=== PATIENT | male | born 1965 | race Hispanic/Latino ===

== ENCOUNTER 2020-05-05 18:24 | Emergency (ER) | payer MEDICARE ==
[2020-05-05] MEDS ORDERED: SODIUM CHLORIDE 0.9% (FLUSH) 10 ML SYG IV PRN (18:35)
[2020-05-05] MEDS ORDERED: SODIUM CHLORIDE 0.9% 1000ML 1,000 ML IVS PRN (18:35)
--- NOTE | 2020-05-05 19:05 | ED.PDOC ---
History of Present Illness - General Source: Vital Signs reviewed, EMS notes reviewed, EMS, intermediate records, old records Exam Limitations: clinical condition - History of Present Illness Initial Comments: 54 yo M comes via EMS from intermediate with c/c of AMS. Hx of hepatic failure. noncompliance. Timing/Duration: unknown <Nadege Curry - Last Filed: 05/06/20 06:27> <Alexei Urbano - Last Filed: 05/06/20 09:04> - General Chief Complaint: Neuro Symptoms/Deficits Stated Complaint: altered mental status Time Seen by Provider: 05/05/20 18:35 - History of Present Illness Allergies/Adverse Reactions: Allergies NO KNOWN ALLERGY Allergy (Verified 03/29/15 19:31) Home Medications: Ambulatory Orders Aspirin [Aspirin 81 Low Dose] 81 mg PO DAILY 05/05/20 Furosemide 80 mg PO DAILY 05/05/20 Insulin Aspart [Novolog Flexpen] 100 unit SC AC 05/05/20 Insulin Glargine [Lantus Solostar] 20 unit SUBCU DAILY 05/05/20 Lactulose 30 ml PO TID 05/05/20 Ondansetron [Ondansetron Odt] 4 mg PO PRN 05/05/20 Spironolactone 200 mg PO DAILY 05/05/20 Acetaminophen [Tylenol] 325 mg PO PRN 05/06/20 Carboxymethylcellulose Sodium [Theratears] 2 drop OP PRN 05/06/20 Magnesium Oxide 400 mg PO TID 05/06/20 Review of Systems - Review of Systems Unable to Obtain Due To: clinical condition <Nadege Curry - Last Filed: 05/06/20 06:27> Past Medical History (General) - Patient Medical History Hx Dementia: No Hx Asthma: No Hx Pacemaker: No Hx Diabetes: Yes Hx Renal Disease: No Hx Cancer: No Hx of HIV: No Hx Hepatitis C: Yes Hx Other PMH: Yes - liver failure - Vaccination History Hx Influenza Vaccination: No - Social History Hx Tobacco Use: No Hx Alcohol Use: Yes - 0CC 2-3 MONTHS Hx Substance Use: No Hx Substance Use Treatment: No Hx Depression: No - Female History Patient : No <Nadege Curry Last Filed: 05/06/20 06:27> Family Medical History - Family History Mother Family History: Unknown Living Status: Unknown <Nadege Curry - Last Filed: 05/06/20 06:27> Physical Exam - Physical Exam General Appearance: Unkempt - GCS 10. , Other - anasarca Eye Exam: bilateral normal, bilateral scleral icterus ENT Exam: other - mucosa membrane dry Neck: non-tender, full range of motion, supple, normal inspection, trachea midline Respiratory: chest non-tender, lungs clear, normal breath sounds, no respiratory distress, no accessory muscle use, other - large right chest ecchymosis Cardiovascular/Chest: normal peripheral pulses, regular rate, rhythm, no edema, no gallop, no JVD Peripheral Pulses: radial,right: 2+, radial,left: 2+ Gastrointestinal/Abdominal: non tender, soft, no organomegaly, no pulsatile mass, other - ascities Back Exam: no CVA tenderness, no vertebral tenderness Extremities Exam: non-tender, normal range of motion Mental Status: disoriented x 3, lethargic Skin Exam: other - ecchymosis on right arm, right chest/abdomen. <Nadege Curry - Last Filed: 05/06/20 06:27> Progress - Progress Progress: 05/05/20 21:18 partial ddx: ICH,hepatic encephalopathy, uti, others. GCS 10, given lactulose PO, took in half and spit the other half out. GCS then improved to 12, patient is now agitated and yelling GCS 12. Will give haldol and another dose of lactulose. UTI noted will get blood cultures, started rocephin. Given Albumin 12.5 mg x 2. MELD score 25. [id number]-[id number]-cirrhosis-mortality - child Class C Discussed with Prosper Angeles for admission, accepted for admission, but did not have nursing staff. attempted to call 15 different placed across the [facility], [place], as well as, [facility]. no beds available. repeat ammonia 106. Repeat ammonia 106. The data reviewed when caring for this patient included: nurse notes, prior records, etc. The history and assessments from nurses notes were reviewed and considered, and the patient's home medication list was also reviewed and considered. 05/06/20 06:19 - Results/Orders Results/Orders: 05/05/20 18:35 IV Care:Saline Lock per Protoc QSHIFT Telemetry Q4H Sodium Chloride 0.9% (Flush) [Saline Flush Syringe] 10 ml IV PRN PRN Sodium Chloride 0.9% 1000ML [Ns 1000 ml] 1,000 ml IVS .QD 05/05/20 18:45 EKG STAT 05/05/20 19:28 Catheter:Palma QSHIFT 05/05/20 19:36 URINE CULTURE W/COLONY COUNT Stat 05/05/20 20:48 Abdoment/Pelvis w/o Contrast [CT] Stat BLOOD CULTURE Stat Laboratory Results WBC 10.7 K/mm3 (4.8-10.8) 05/05/20 18:50 RBC 3.74 M/mm3 (4.70-6.10) L 05/05/20 18:50 Hgb 11.3 gm/dL (14.0-18.0) L 05/05/20 18:50 Hct 32.9 % (42.0-52.0) L 05/05/20 18:50 MCV 87.9 fl (80.0-94.0) 05/05/20 18:50 MCH 30.2 pg (27.0-31.0) 05/05/20 18:50 MCHC 34.3 g/dL (33.0-37.0) 05/05/20 18:50 RDW 15.8 % (11.5-14.5) H 05/05/20 18:50 Plt Count 24 K/mm3 (130-400) L* 05/05/20 18:50 MPV 10.3 fl (7.40-10.4) 05/05/20 18:50 Absolute Neuts (auto) 9.80 K/uL (1.8-6.8) H 05/05/20 18:50 Absolute Lymphs (auto) 0.30 K/uL (1.0-3.4) L 05/05/20 18:50 Absolute Monos (auto) 0.50 K/uL (0.2-0.8) 05/05/20 18:50 Absolute Eos (auto) 0.10 K/uL (0.0-0.4) 05/05/20 18:50 Absolute Basos (auto) 0.00 K/uL (0.0-0.1) 05/05/20 18:50 Neutrophils % 91.4 % (42.0-78.0) H 05/05/20 18:50 Lymphocytes % 2.7 % (20.0-50.0) L 05/05/20 18:50 Monocytes % 4.9 % (2.0-9.0) 05/05/20 18:50 Eosinophils % 0.8 % (1.0-5.0) L 05/05/20 18:50 Basophils % 0.2 % (0.0-2.0) 05/05/20 18:50 PT 18.5 SECONDS (9.0-10.9) H 05/05/20 18:50 INR 1.87 (0.9-1.15) H 05/05/20 18:50 PTT (SP) 42.6 SECONDS (21.8-31.6) H 05/05/20 18:50 Sodium 130 mmol/L (135-145) L 05/05/20 18:50 Potassium 3.7 mmol/L (3.6-5.0) 05/05/20 18:50 Chloride 100 mmol/L (101-111) L 05/05/20 18:50 Carbon Dioxide 23 mmol/L (21-31) 05/05/20 18:50 Anion Gap 10.7 (12-18) L 05/05/20 18:50 BUN 20 mg/dL (7-18) H 05/05/20 18:50 Creatinine < 0.40 mg/dL (0.6-1.3) L 05/05/20 18:50 BUN/Creatinine Ratio 50.0 (10-20) H 05/05/20 18:50 Random Glucose 175 mg/dL (70-105) H 05/05/20 18:50 Serum Osmolality 267.7 mOsm/L (275-295) L 05/05/20 18:50 Calcium 7.4 mg/dL (8.4-10.2) L 05/05/20 18:50 Total Bilirubin 5.3 mg/dL (0.2-1.0) H* 05/05/20 18:50 AST 29 IU/L (10-42) 05/05/20 18:50 ALT 30 IU/L (10-60) 05/05/20 18:50 Alkaline Phosphatase 157 IU/L (42-121) H 05/05/20 18:50 Ammonia 179 umol/L (10-35) H* 05/05/20 18:50 Creatine Kinase 50 IU/L (38-174) 05/05/20 18:50 CK-MB (CK-2) 1.1 ng/mL (0.0-4.4) 05/05/20 18:50 CK-MB (CK-2) % Not Reportable 05/05/20 18:50 Troponin I 0.03 ng/mL (0.01-0.05) 05/05/20 18:50 Serum Total Protein 5.6 gm/dL (6.4-8.2) L 05/05/20 18:50 Albumin 1.5 g/dl (3.2-5.5) L 05/05/20 18:50 Globulin 4.1 gm/dL (2.3-3.5) H 05/05/20 18:50 Albumin/Globulin Ratio 0.4 (1.1-1.9) L 05/05/20 18:50 Urine Color Paty (Yellow) 05/05/20 19:36 Urine Appearance Cloudy (Clear) 05/05/20 19:36 Urine pH 5.5 (4.5-7.8) 05/05/20 19:36 Ur Specific Gorman 1.015 (1.005-1.030) 05/05/20 19:36 Urine Protein Negative mg/dL 05/05/20 19:36 Urine Glucose (UA) Negative mg/dL (Negative) 05/05/20 19:36 Urine Ketones Negative mg/dL (NEGATIVE) 05/05/20 19:36 Urine Blood Moderate (Negative) H 05/05/20 19:36 Urine Nitrite Negative 05/05/20 19:36 Urine Bilirubin Small (NEGATIVE) H 05/05/20 19:36 Urine Urobilinogen >= 8.0 mg/dL (0.2-1.0) H 05/05/20 19:36 Ur Leukocyte Esterase Trace (Negative) H 05/05/20 19:36 Urine RBC 5-10 /hpf H 05/05/20 19:36 Urine WBC 10-20 /hpf H 05/05/20 19:36 Ur Epithelial Cells 1-3 /hpf 05/05/20 19:36 Urine Bacteria 4+ H 05/05/20 19:36 Salicylates < 4.0 mg/dL (0-29.9) 05/05/20 18:50 Urine Opiates Screen Negative ng/mL (1999) 05/05/20 19:36 Acetaminophen 13.8 ug/mL (10.0-30.0) 05/05/20 18:50 Urine Barbiturates Negative ng/mL (200) 05/05/20 19:36 Ur Phencyclidine Scrn Negative ng/mL (25) 05/05/20 19:36 U Amphetamin/Meth Scrn Negative ng/mL (1000) 05/05/20 19:36 U Benzodiazepines Scrn Negative ng/mL (200) 05/05/20 19:36 U Cocaine Metab Screen Negative ng/mL (300) 05/05/20 19:36 U Cannabinoids Screen Negative ng/mL (50) 05/05/20 19:36 Ethyl Alcohol < 5.10 mg/dL (0-79) 05/05/20 18:50 - EKG/XRAY/CT EKG: Sinus, Tachy Comments: HR 106, normal intervals, no acute ischemia. <Nadege Curry - Last Filed: 05/06/20 06:27> - Progress Progress: 05/06/20 08:03 -Handoff received from Dr. Curry at shift change. Patient is a 54-year-old female with past medical history of end-stage liver disease, cirrhosis, hepatitis C, history of alcohol abuse, diabetes who presented to the ED now over 13 hours ago from [facility] for chief complaint of altered mental status. Patient had full work-up in the ED which revealed elevated ammonia level 179 which is now trended down to 106. Otherwise his labs revealed findings consistent with progressive end-stage liver disease with pancytopenia, abnormal liver labs, etc. His UA was concerning for possible UTI. CT imaging of the head revealed no acute processes. CT abdomen/pelvis revealed findings of shrunken cirrhotic liver with moderate ascites and findings of chronic pancreatitis. There was small infiltrate RLL lung noted suspicious for possible infection vs effusion, but no other acute findings noted. The patient initially presented with GCS of 10 which then improved to 12 after lactulose and improvement of the ammonia level. However he continued to have agitation so he was given Haldol 10 mg IM total and Ativan 1.5 mg IV through the night. The last dose of Ativan was given at 2:30 AM. I have been told by nursing staff that he has been sound asleep without agitation or need for restraints for over 6 hours now. He has remained hemodynamically stable. He has additionally received some IV fluids and albumin as well as Rocephin for UTI. He has had 1 L blood-tinged urine output through the night. Numerous attempts have been made to transfer the patient given the lack of nursing staff here to care for this patient. However, over 15 different hospitals have been contacted and no beds are available. As the patient has remained stable, I again tried to discuss the patient with Prosper Angeles but he still declines transfer given lack of nursing staff to handle this patient. He has suggested we call [facility] in [place], [place], to see if they have the ability to accept this patient for transfer. I have attempted to contact next of kin, Shayy Manuel, listed in the patient's [place] chart but no answer. Pt is listed as full code. I am told he is a new patient for [facility]. Review of labs from 2015 are c/w worsening of liver disease. 05/06/20 08:58 -Dr. Payton at [facility] in [place], [place] has accepted the patient for transfer. Transferring diagnoses are: acute hepatic encephalopathy, UTI, thrombocytopenia. Pt remains stable for transfer via ground EMS. Still unable to contact next of kin. Pt's full chart will be sent in transfer. Alexei Urbano MD Billing #[id number] 05/06/20 09:03 <Alexei Urbano - Last Filed: 05/06/20 09:04> Departure <Nadege Curry - Last Filed: 05/06/20 06:27> - Departure Time of Disposition: 09:01 <Alexei Urbano - Last Filed: 05/06/20 09:04> - Departure Clinical Impression: Hepatic encephalopathy, Thrombocytopenia UTI (urinary tract infection) Qualifiers: Urinary tract infection type: site unspecified Hematuria presence: with hematuria Qualified Code(s): N39.0 - Urinary tract infection, site not specified Disposition: Transfer to Hospital Condition: Fair Departure Forms: ED Discharge - Pt. Copy, Patient Portal Self Enrollment Home Medications: Ambulatory Orders Aspirin [Aspirin 81 Low Dose] 81 mg PO DAILY 05/05/20 Furosemide 80 mg PO DAILY 05/05/20 Insulin Aspart [Novolog Flexpen] 100 unit SC AC 05/05/20 Insulin Glargine [Lantus Solostar] 20 unit SUBCU DAILY 05/05/20 Lactulose 30 ml PO TID 05/05/20 Ondansetron [Ondansetron Odt] 4 mg PO PRN 05/05/20 Spironolactone 200 mg PO DAILY 05/05/20 Acetaminophen [Tylenol] 325 mg PO PRN 05/06/20 Carboxymethylcellulose Sodium [Theratears] 2 drop OP PRN 05/06/20 Magnesium Oxide 400 mg PO TID 05/06/20 Decision To Admit - Decistion To Admit Decision to Admit Reason: Medical Nature Decision to Admit Date: 05/05/20 Decision to Admit Time: 20:13 <Nadege Curry - Last Filed: 05/06/20 06:27> Transfer to Outside Facility - Transfer Information Decision to Transfer Date: 05/05/20 Decision to Transfer Time: 22:00 Accepting Provider:: no beds avaliable <Nadege Curry - Last Filed: 05/06/20 06:27> - Transfer Information Decision to Transfer Date: 05/06/20 Decision to Transfer Time: 09:02 Reason for Transfer: lack of nursing staff Accepting Provider:: Dr. Alberts Accepting Facility: [facility] <Alexei Urbano - Last Filed: 05/06/20 09:04>
[2020-05-05] MEDS ORDERED: LACTULOSE SYRUP 20 GM/30 ML UD NG ONE (19:23)
[2020-05-05] MEDS ORDERED: ALBUMIN IVPB ONE (19:28)
--- NOTE | 2020-05-05 19:45 | CT ---
EXAM DESCRIPTION: Head 05/05/2020 7:42 PM WAITER/WAITRESS COUNTER CLINICAL HISTORY: 54 years, Male, ams COMPARISON: None. FINDINGS: Multiple transaxial tomograms of the brain were obtained from the base of the skull to the vertex without contrast. 2-D multiplanar reformats and the coronal and sagittal plane were performed and reviewed. An individualized dose optimization technique, Automated Exposure Control, was utilized for the performed procedure. Several of the images are compared mild by motion artifact limiting diagnostic value especially along the midportion/caudate putamen area. Brain parenchyma as well as the morrow and white matter differentiation demonstrate to be within normal limits. Mild prominence of the sulci and gyri which is appropriate for patient's age. There is no midline shift and/or mass effect. No definitive significant acute hemorrhage. No significant areas of hypodensities that will suggest acute infarction. Grossly the lateral ventricles and cisterns displace normal appearance. No gross intra or extra axial fluid collections were seen. The calvarium is intact with no evidence for significant fracture. The visualized portions of the paranasal sinuses and orbits demonstrate to be clear. IMPRESSION: COMPROMISED STUDY DUE TO MOTION ARTIFACT LIMITING DIAGNOSTIC VALUE. NO ACUTE INTRACRANIAL HEMORRHAGE. GROSSLY UNREMARKABLE CT SCAN OF THE BRAIN WITHOUT CONTRAST. Electronically signed by: Hebert Ryan MD 05/05/2020 7:43 PM WAITER/WAITRESS COUNTER
[2020-05-05] MEDS ORDERED: cefTRIAXone SODIUM 1 GM in SODIUM CHL 0.9% 50ML MIN-BAG+ 50 ML IVPB ONE (20:48)
--- NOTE | 2020-05-05 21:46 | CT ---
EXAM DESCRIPTION: Abdoment/Pelvis w/o Contrast 05/05/2020 9:36 PM GAS TORCH BRAZIER CLINICAL HISTORY: 54 years, Male, elevated bili COMPARISON: None PROCEDURE: Multiple transaxial tomograms of the abdomen and pelvis were performed from the lung bases to the symphysis pubis, without administration of IV and oral contrast. Multiplanar reformats in the sagittal and coronal plane were generated and reviewed. An individualized dose optimization technique, Automated Exposure Control, was utilized for the performed procedure. FINDINGS: The lack of IV and oral contrast limits evaluation of solid organs, subtle lesions cannot be excluded. Study is severely compromised due to motion artifact limiting diagnostic value. The lung bases demonstrate elevation right hemidiaphragm with compressive atelectatic changes and/or infiltrate right lung base. Area of groundglass opacity inferior lingular segment on image 11. There is small to moderate amount of ascites. There is diffuse haziness of the skin/subcutaneous contains tissue corresponding to edema/anasarca. Clips within the gallbladder fossa corresponding to cholecystectomy. The liver is somewhat decreased in size perhaps related to cirrhosis. There is splenomegaly due to motion artifact evaluation is limited. Findings suggest perhaps calcifications within the pancreas perhaps ingesting changes of chronic pancreatitis. There is a probable mid pole left renal calculus measuring 2.1 mm. No significant hydronephrosis. The right kidney demonstrate to be grossly unremarkable. Minimal atherosclerotic disease aortic bifurcation. Holden catheter in the decompressed urinary bladder. The prostate gland demonstrate to be within normal limits. There is a left inguinal hernia containing fluid within the inguinal sac best identified on image [id number]. Grossly the large and small bowel demonstrate to be unremarkable. Questionable edema within the mucosa of the large bowel from ascites/hypoproteinemia state. There is status post ORIF of the left hip joint. IMPRESSION: SEVERELY COMPROMISED STUDY DUE TO MOTION ARTIFACT. GROUNDGLASS OPACITY INFERIOR LINGULAR SEGMENT. COMPRESSIVE ATELECTATIC CHANGES AND/OR INFILTRATE POSTERIOR SEGMENT RIGHT LOWER LOBE WITH ELEVATION OF THE RIGHT HEMIDIAPHRAGM. IMAGING FEATURES CAN BE SEEN WITH COVID-19 PNEUMONIA, THOUGH ARE NONSPECIFIC AND CAN OCCUR WITH A VARIETY OF INFECTIOUS AND NONINFECTIOUS PROCESSES. (REFERENCE: HTTPS://PUBS.[email or web address].ORG/DOI/FULL/[email or web address]/RYCT [email or web address]). MODERATE AMOUNT OF ASCITES. DECREASED SIZE OF THE LIVER AND SPLENOMEGALY FINDINGS SUGGEST CHANGES OF CIRRHOSIS. PROBABLE CALCIFICATIONS WITHIN THE PANCREAS PERHAPS SUGGESTING THE POSSIBILITY OF CHRONIC PANCREATITIS. HOLDEN CATHETER IN THE URINARY BLADDER. PROBABLE EDEMA OF THE WALL MUCOSA OF THE LARGE BOWEL RELATED TO ASCITES AND/OR HYPOPROTEINEMIA STATE. EDEMA-ANASARCA OF THE SKIN-SUBCUTANEOUS CONTAINS TISSUE. ORIF LEFT HIP JOINT. Electronically signed by: Hebert Ryan MD 05/05/2020 9:44 PM G[facility]OR[facility]RA[facility]
[2020-05-05] MEDS ORDERED: HALOPERIDOL LACTATE INJ 5 MG/ML VIAL IM ONE ×2 (23:10→23:34)
[2020-05-05] MEDS ORDERED: LACTULOSE SYRUP 20 GM/30 ML UD PR ONE (23:34)
[2020-05-06] MEDS ORDERED: HALOPERIDOL LACTATE INJ 5 MG/ML VIAL IM ONE (01:36)
[2020-05-06] MEDS ORDERED: ALBUMIN IVPB ONE (02:12)
[2020-05-06] MEDS ORDERED: THIAMINE HCL INJ 100 MG/ML VIAL ONE (02:16)
[2020-05-06] MEDS ORDERED: SODIUM CHLORIDE 0.9% 1000ML 0 ML ONE (02:16)
[2020-05-06] MEDS ORDERED: SODIUM CHLORIDE 0.9% 100ML 100 ML IVPB ONE (02:24)
[2020-05-06] MEDS ORDERED: LACTULOSE SYRUP 20 GM/30 ML UD PO ONE (05:28)
[2020-05-06 09:31] VITALS: O2SAT 98
[2020-05-06 10:06] VITALS: BP 108/72; TEMP 97.4
[2020-05-06] MEDS ORDERED: THIAMINE HCL INJ 100 MG in SODIUM CHLORIDE 0.9% 100ML 100 ML IVPB ONE (23:51)
== END 2020-05-06 10:06 | disposition short-term general hospital (02) ==
LOC: ER 18:24
DX: K72.90 Hepatic failure, unspecified without coma (principal); D69.6 Thrombocytopenia, unspecified; N39.0 Urinary tract infection, site not specified; R45.1 Restlessness and agitation; R41.82 Altered mental status, unspecified; S20.212A Contusion of left front wall of thorax, initial encounter; S50.11XA Contusion of right forearm, initial encounter; S30.1XXA Contusion of abdominal wall, initial encounter; E11.9 Type 2 diabetes mellitus without complications; X58.XXXA Exposure to other specified factors, initial encounter; Y92.9 Unspecified place or not applicable; Z86.19 Personal history of other infectious and parasitic diseases; Z79.899 Other long term (current) drug therapy; Z79.4 Long term (current) use of insulin; Z79.82 Long term (current) use of aspirin; Z87.19 Personal history of other diseases of the digestive system
CPT/HCPCS: 36415; 70450; 74176; 80053; 80307; 80320; 80329; 81001; 82140; 82550; 82553; 84484; 85025; 85610; 85730; 87040; 87086; 87088; 87186; 87635; 93005; A4216; J0696; J1630; J2060; J3411; J7030; J7050; P9047

== ENCOUNTER 2020-05-12 10:20 | Inpatient (IN) | payer MEDICARE ==
[2020-05-12] MEDS ORDERED: SODIUM CHLORIDE 0.9% (FLUSH) 10 ML SYG IV PRN ×2 (10:42→17:23)
[2020-05-12] MEDS ORDERED: SODIUM CHLORIDE 0.9% 1000ML 1,000 ML IVS ONE (11:12)
[2020-05-12] MEDS ORDERED: CEFEPIME 1 GM in SODIUM CHLORIDE 0.9% 50ML 50 ML IVPB ONE (14:05)
--- NOTE | 2020-05-12 16:00 | HP ---
SUPERVISING PHYSICIAN: Jeffy Martell M.D. CHIEF COMPLAINT: Altered mental status. HISTORY OF PRESENT ILLNESS: Mr. Manuel is a 54 year-old male patient that resides at [facility]. He came to the Emergency Room when long-term reported that the patient was refusing his medications and his mental status was changing. He has a history of hepatitis C and end stage liver failure due to cirrhosis, and is normally taking Lactulose but has been refusing his medications. His review of systems and History of Present Illness is very limited as the patient is unable to provide any significant history and there are very limited records available at time of admission. I do know that he was actually seen in the Emergency Room on 05/05/20 for the same issue of altered mental status with elevated ammonia level and transferred to another hospital for continuation and cure. He was transferred back to the long-term. Today, his ammonia level in the Emergency Room was 156, total bilirubin was 6.1, white count was normal. It did show a slight left shift. He was tested for COVID and found to be positive. He is now going to be admitted for hepatic encephalopathy secondary to elevated ammonia levels and further management and evaluation. He was admitted in stable condition. PAST MEDICAL HISTORY: 1. Hepatitis C. 2. Cirrhosis. 3. Diabetes mellitus type 2. 4. Hypertension. PAST SURGICAL HISTORY: 1. Cholecystectomy. Other surgeries are not known. CURRENT MEDICATIONS: 1. Lasix 40 mg b.i.d. 2. Lactulose 30 mL t.i.d. 3. Tylenol 325 mg every 4 hours p.r.n. 4. Magnesium oxide 400 mg t.i.d. 5. Spironolactone 200 mg daily. 6. Insulin sliding scale. ALLERGIES: BENADRYL. FAMILY HISTORY: Unknown. SOCIAL HISTORY: The patient does have a history of apparently excessive alcohol usage in the past. It is unknown whether he was a previous smoker and currently resides at [facility]. REVIEW OF SYSTEMS: Not obtainable due to current mental status. PHYSICAL EXAMINATION: VITAL SIGNS: On admission, temperature 97.8, pulse 95, blood pressure 112/69, respirations 16, satting 96% on room air. GENERAL: The patient on admission is resting comfortably. He does look pretty lethargic and frail. HEENT: Tympanic membranes were clear bilaterally. Oropharynx was notably dry mucosal membranes. NECK: Supple, non-tender. Full range of motion. CHEST: Lung sounds were clear to auscultation bilaterally without any rhonchi, wheezing or rales. CARDIOVASCULAR: Regular rate and rhythm without appreciable murmurs, gallops, or rubs. ABDOMEN: Soft, non-tender with positive bowel sounds. EXTREMITIES: Just a trace of edema but no obvious anasarca or swelling, clubbing or cyanosis. NEUROLOGIC: He is disoriented. He only moans but will open his eyes to stimulus and does try to take some of his medications. Otherwise he is fairly lethargic. SKIN: Normal color, warm and dry. LABORATORY: White count 10,000. Differential does show a left shift. Hemoglobin 10.2, hematocrit 29.4, platelet count 74,000. Chemistries show sodium 132, normal potassium. Creatinine is less than 0.4. Total bilirubin 6.1, direct bilirubin 1.8, indirect is 4.3. Liver functions show normal AST and ALT. Ammonia level initially was 156. Albumin 1.5. Urinalysis showed a small amount of bilirubin, greater than 8 urobilinogen, 8.5 pH with microscopic showing 1+ bacteria. No epithelials, 2+ amorphous, no RBCs, no WBCs. MICROBIOLOGY: COVID swab was positive. Blood cultures are pending. RADIOLOGY: Abdominal ultrasound, liver showed small echogenic with lobulated capsules consistent with cirrhosis with physiologic hepatopetal flow in the portal vein. No large ducts. Pancreas is not seen well. There is noted moderate ascites. Gallbladder was surgically absent. No tenderness on palpation. Common bile duct was normal caliber physiologic. ASSESSMENT: 1. 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 2. Urinary tract infection. Cultures pending. 3. COVID positive with no signs of current symptoms. 4. Diabetes type 2. 5. History of hepatitis C. PLAN: Mr. Manuel is going to be admitted for hepatic encephalopathy. He is in COVID isolation due to the fact that he was positive and he is from [facility]. He is not showing any signs or symptoms of COVID pneumonitis at this point. I did talk to Dr. Martell and he agrees treating aggressively for COVID at this point is not warranted unless he does show some desaturations. Will check a chest x-ray in the morning. I have got him on Ceftriaxone for the urinary tract infection. He does not really have a great deal of ascites. There is at this point I do not think any reason to do a paracentesis. He is definitely high risk for spontaneous bacterial peritonitis but at this point he just looks like he has got an elevated ammonia secondary to not taking his medications, including his Lactulose. I have ordered Lactulose 25 mL every 2 hours until he has at least 2 good loose stools. I will recheck his ammonia level in the morning. He will be on Rocephin again for the urinary tract infection and prophylaxis for the SBP. Will resume his home medications once those have been updated and verified. Will anticipate his length of stay to be at least 2 to 3 days. He will be on sliding scale per protocol. He will be on Align per protocol. He will be on Protonix for gastric protection. Will hold off on Lovenox as his platelet count was 76,000. His albumin is quite low so will go ahead and give him some albumin as well. Until we can transition to outpatient management will continue to monitor and treat as needed. #[id number] [facility]
--- NOTE | 2020-05-12 16:20 | US ---
EXAM DESCRIPTION: Abdomen,Limited: ULTRASOUND. CLINICAL HISTORY: elevated bilirubin COMPARISON: None. TECHNIQUE: Transabdominal scanning: morrow-scale mode. Doppler mode. FINDINGS: Gallbladder: Surgically absent. No fluid in the gallbladder fossa. Abdominal wall Non-tender with transducer pressure. Common bile duct: caliber 6.1 mm; physiologic postcholecystectomy. Liver: Increased echogenicity; contour liver capsule shows lobulations where seen. Fluid around the liver. Intrahepatic biliary ducts normal caliber. Doppler hepatopedal flow and normal caliber portal vein.. 8.6 mm. Long axis right lobe 10.9 cm. Pancreas: Obscured by intestinal gas and patient body habitus. Proximal abdominal aorta: Not well seen.. IVC: visualized and normal caliber. Right kidney: long axis measures 10.9 cm; volume 150.7 ml. Cortical echogenicity increased. Cortical thickness normal.. No echogenic stones; no hydronephrosis. IMPRESSION: 1. Liver small and echogenic with lobulated capsule. This is consistent with cirrhosis. Physiologic hepatopedal flow in the portal vein. No enlarged ducts. Pancreas not well seen. Moderate ascites. 2. Gallbladder surgically absent. Nontender abdominal wall with transducer pressure. Common bile duct caliber physiologic. 3. Minimal echogenicity of the renal cortex with normal thickening. Otherwise unremarkable. Electronically signed by: Wale Gracia MD 05/12/2020 4:19 PM [employer] MACHINE OPERATOR
--- NOTE | 2020-05-12 16:26 | ED.PDOC ---
History of Present Illness - General Chief Complaint: Neuro Symptoms/Deficits Stated Complaint: altered mental staus Time Seen by Provider: 05/12/20 10:41 Source: patient, RN notes reviewed, Vital Signs reviewed, EMS notes reviewed, retirement records, old records - from ER visit 1 wk ago. Exam Limitations: clinical condition - altered mental status - History of Present Illness Timing/Duration: unsure Severity: severe Improving Factors: nothing Worsening Factors: nothing Associated Symptoms: denies symptoms Allergies/Adverse Reactions: Allergies Diphenhydramine [From Benadryl] Allergy (Verified 05/12/20 11:16) Home Medications: Ambulatory Orders Aspirin [Aspirin 81 Low Dose] 81 mg PO DAILY 05/05/20 Furosemide 80 mg PO DAILY 05/05/20 Insulin Aspart [Novolog Flexpen] 100 unit SC AC 05/05/20 Insulin Glargine [Lantus Solostar] 20 unit SUBCU DAILY 05/05/20 Lactulose 30 ml PO TID 05/05/20 Ondansetron [Ondansetron Odt] 4 mg PO PRN 05/05/20 Spironolactone 200 mg PO DAILY 05/05/20 Acetaminophen [Tylenol] 325 mg PO PRN 05/06/20 Carboxymethylcellulose Sodium [Theratears] 2 drop OP PRN 05/06/20 Magnesium Oxide 400 mg PO TID 05/06/20 Review of Systems - Review of Systems Constitutional: States: no symptoms reported, see HPI. Denies: chills, fever, malaise, weakness Neurological: States: see HPI, anxiety Unable to Obtain Due To: clinical condition - altered mental status Past Medical History (General) - Patient Medical History Hx Seizures: No Hx Stroke: No Hx Dementia: No Hx Asthma: No Hx of COPD: No Hx Cardiac Disorders: No Hx Congestive Heart Failure: No Hx Pacemaker: No Hx Hypertension: No Hx Thyroid Disease: No Hx Diabetes: Yes Hx Gastroesophageal Reflux: No Hx Renal Disease: No Hx Cancer: No Hx of HIV: No Hx Hepatitis C: Yes Hx MRSA: No - Vaccination History Hx Tetanus, Diphtheria Vaccination: Yes Hx Influenza Vaccination: No Hx Pneumococcal Vaccination: Yes - Social History Hx Tobacco Use: No Hx Alcohol Use: Yes - 0CC 2-3 MONTHS Hx Substance Use: No Hx Substance Use Treatment: No Hx Depression: No - Activities of Daily Living [facility]isted [facility] (if applicable):: [facility] - Female History Patient : No Family Medical History - Family History Mother Family History: Unknown Living Status: Unknown Physical Exam - Physical Exam General Appearance: Agitated, Anxious, Frail, Lethargic Eye Exam: bilateral normal Ears, Nose, Throat: other - Dry mucous membranes. Neck: full range of motion, supple Respiratory: chest non-tender, normal breath sounds, no respiratory distress Cardiovascular/Chest: normal peripheral pulses, regular rate, rhythm, no edema, no gallop, no JVD, no murmur Peripheral Pulses: radial,right: 2+, radial,left: 2+ Gastrointestinal/Abdominal: normal bowel sounds, soft Back Exam: normal inspection, no CVA tenderness, no vertebral tenderness Extremity: normal range of motion, non-tender, normal inspection Neurologic: disoriented x 3 Skin Exam: normal color, warm/dry Lymphatic: no adenopathy Progress - Progress Progress: Differential diagnosis: UTI, elevated ammonia, sepsis, dehydration, kidney failure among others. 05/12/20 16:37 Patient continues to have altered mental status but is nonviolent and is not requiring restraint. He has an elevated ammonia 156. Patient is also clinically dehydrated as well as by BUN/creatinine ratios. Patient also with UTI. Plan on admission to the hospital for further evaluation and treatment. I have discussed this with Prosper Angeles NP, and he accepts patient for admission. Dimas Garcia M.D. #[id number] - Results/Orders Results/Orders: 05/12/20 10:42 IV Care:Saline Lock per Protoc QSHIFT Sodium Chloride 0.9% (Flush) [Saline Flush Syringe] 10 ml IV PRN PRN 05/12/20 10:45 EKG STAT 05/12/20 14:04 URINE CULTURE W/COLONY COUNT Stat 05/12/20 14:31 BLOOD CULTURE Stat Laboratory Results - last 24 hr 05/12/20 05/12/20 05/12/20 11:00 11:00 11:00 WBC 10.0 RBC 3.26 L Hgb 10.2 L Hct 29.4 L MCV 90.2 MCH 31.3 H MCHC 34.7 RDW 15.5 H Plt Count 74 L MPV 8.5 Absolute Neuts (auto) 8.30 H Absolute Lymphs (auto) 0.80 L Absolute Monos (auto) 0.70 Absolute Eos (auto) 0.10 Absolute Basos (auto) 0.00 Neutrophils % 83.4 H Lymphocytes % 7.8 L Monocytes % 7.5 Eosinophils % 0.8 L Basophils % 0.5 Sodium 132 L Potassium 4.3 Chloride 104 Carbon Dioxide 19 L Anion Gap 13.3 BUN 11 Creatinine < 0.40 L BUN/Creatinine Ratio 27.0 H Random Glucose 92 Serum Osmolality 263.6 L Calcium 7.1 L Total Bilirubin 6.1 H* Direct Bilirubin 1.8 H Indirect Bilirubin 4.3 H AST 27 ALT 26 Alkaline Phosphatase 150 H Ammonia 156 H* Serum Total Protein 5.5 L Albumin 1.5 L Lipase 24 Urine Color Urine Appearance Urine pH Ur Specific [place] Urine Protein Urine Glucose (UA) Urine Ketones Urine Blood Urine Nitrite Urine Bilirubin Urine Urobilinogen Ur Leukocyte Esterase Urine RBC Urine WBC Ur Epithelial Cells Amorphous Sediment Urine Bacteria Urine Mucus 05/12/20 11:25 WBC RBC Hgb Hct MCV MCH MCHC RDW Plt Count MPV Absolute Neuts (auto) Absolute Lymphs (auto) Absolute Monos (auto) Absolute Eos (auto) Absolute Basos (auto) Neutrophils % Lymphocytes % Monocytes % Eosinophils % Basophils % Sodium Potassium Chloride Carbon Dioxide Anion Gap BUN Creatinine BUN/Creatinine Ratio Random Glucose Serum Osmolality Calcium Total Bilirubin Direct Bilirubin Indirect Bilirubin AST ALT Alkaline Phosphatase Ammonia Serum Total Protein Albumin Lipase Urine Color [place] Urine Appearance Sl cloudy Urine pH 8.5 H Ur Specific [place] 1.015 Urine Protein Negative Urine Glucose (UA) Negative Urine Ketones Trace Urine Blood Negative Urine Nitrite Negative Urine Bilirubin Small H Urine Urobilinogen >= 8.0 H Ur Leukocyte Esterase Negative Urine RBC 0 Urine WBC 1-3 Ur Epithelial Cells 0-1 Amorphous Sediment 2+ Urine Bacteria 1+ Urine Mucus Moderate EXAM DESCRIPTION: Abdomen,Limited: ULTRASOUND. CLINICAL HISTORY: elevated bilirubin COMPARISON: None. TECHNIQUE: Transabdominal scanning: morrow-scale mode. Doppler mode. FINDINGS: Gallbladder: Surgically absent. No fluid in the gallbladder fossa. Abdominal wall Non-tender with transducer pressure. Common bile duct: caliber 6.1 mm; physiologic postcholecystectomy. Liver: Increased echogenicity; contour liver capsule shows lobulations where seen. Fluid around the liver. Intrahepatic biliary ducts normal caliber. Doppler hepatopedal flow and normal caliber portal vein.. 8.6 mm. Long axis right lobe 10.9 cm. Pancreas: Obscured by intestinal gas and patient body habitus. Proximal abdominal aorta: Not well seen.. IVC: visualized and normal caliber. Right kidney: long axis measures 10.9 cm; volume 150.7 ml. Cortical echogenicity increased. Cortical thickness normal.. No echogenic stones; no hydronephrosis. IMPRESSION: 1. Liver small and echogenic with lobulated capsule. This is consistent with cirrhosis. Physiologic hepatopedal flow in the portal vein. No enlarged ducts. Pancreas not well seen. Moderate ascites. 2. Gallbladder surgically absent. Nontender abdominal wall with transducer pressure. Common bile duct caliber physiologic. 3. Minimal echogenicity of the renal cortex with normal thickening. Otherwise unremarkable. Electronically signed by: Wale Gracia MD 05/12/2020 4:19 PM EKG performed 12 May 2020 at 1024 hrs.: Normal sinus rhythm at 84 bpm, normal axis deviation, low voltage QRS, cannot rule out anterior infarct, age indeterminate, abnormal EKG. No comparison EKG available at this time. Vital Signs 05/12/20 05/12/20 05/12/20 11:09 12:00 13:00 Temperature 96.8 F L Pulse Rate [ 91 H 88 pulse ox] Respiratory 20 14 14 Rate Blood Pressure 98/53 95/49 120/64 [Right Arm] O2 Sat by Pulse 96 94 L Oximetry 05/12/20 05/12/20 14:00 15:00 Temperature Pulse Rate [ 86 105 H pulse ox] Respiratory 14 18 Rate Blood Pressure 112/65 115/79 [Right Arm] O2 Sat by Pulse 94 L 98 Oximetry Departure - Departure Clinical Impression: Increased ammonia level, Dehydration Altered mental status Qualifiers: Altered mental status type: disorientation Qualified Code(s): R41.0 - Dis orientation, unspecified UTI (urinary tract infection) Qualifiers: Urinary tract infection type: acute cystitis Hematuria presence: without hematuria Qualified Code(s): N30.00 - Acute cystitis without hematuria Time of Disposition: 16:41 Disposition: Discharge to Home or Self Care Condition: Serious Diet: resume usual diet Activity: as per physical therapy Home Medications: Ambulatory Orders Aspirin [Aspirin 81 Low Dose] 81 mg PO DAILY 05/05/20 Furosemide 80 mg PO DAILY 05/05/20 Insulin Aspart [Novolog Flexpen] 100 unit SC AC 05/05/20 Insulin Glargine [Lantus Solostar] 20 unit SUBCU DAILY 05/05/20 Lactulose 30 ml PO TID 05/05/20 Ondansetron [Ondansetron Odt] 4 mg PO PRN 05/05/20 Spironolactone 200 mg PO DAILY 05/05/20 Acetaminophen [Tylenol] 325 mg PO PRN 05/06/20 Carboxymethylcellulose Sodium [Theratears] 2 drop OP PRN 05/06/20 Magnesium Oxide 400 mg PO TID 05/06/20 Critical Care Note - Critical Care Note Total Time (mins): 45 Decision To Admit - Decistion To Admit Decision to Admit Date: 05/12/20 Decision to Admit Time: 15:30
[2020-05-12] MEDS ORDERED: DEXTROSE 50% 25 GM/50 ML SYG IV PRN (17:23)
[2020-05-12] MEDS ORDERED: GLUCAGON INJ 1 MG VIAL SUBCU PRN (17:23)
[2020-05-12] MEDS ORDERED: IV SET AND CAP CHANGE INJ INJ SCH (17:30)
[2020-05-12] MEDS: LACTULOSE SYRUP 20 GM/30 ML UD PO SCH ×3 (18:23→21:57)
[2020-05-12] MEDS ORDERED: ALBUMIN 25 GM in PREMIX BOTTLE 2 BOTTLE IVPB ONE (19:42)
[2020-05-12] MEDS ORDERED: FUROSEMIDE 40 MG PO SCH (21:00)
[2020-05-12] MEDS ORDERED: FUROSEMIDE 40 MG TAB ONE (21:15)
[2020-05-12] MEDS ORDERED: SODIUM CHLORIDE 0.9% 250ML 250 ML ONE (21:15)
[2020-05-12] MEDS ORDERED: AZITHROMYCIN IV 500 MG VIAL IVPB ONE (21:15)
[2020-05-12] MEDS ORDERED: ALBUMIN 100 ML IVPB ONE (21:15)
[2020-05-12] MEDS: AZITHROMYCIN IV 500 MG in SODIUM CHLORIDE 0.9% 250ML 250 ML IVPB SCH (21:58)
[2020-05-12] MEDS: INSULIN LISPRO 100 UNITS/ML PEN SUBCU SCH (22:09)
[2020-05-13] MEDS: LACTULOSE SYRUP 20 GM/30 ML UD PO SCH ×9 (00:08→19:57)
[2020-05-13] MEDS ORDERED: PANTOPRAZOLE SODIUM IV 40 MG VIAL IV SCH (06:30)
[2020-05-13] MEDS ORDERED: SODIUM CHL 0.9% 50ML MIN-BAG+ 50 ML IVPB ONE (07:39)
[2020-05-13] MEDS ORDERED: cefTRIAXone SODIUM 1 GM VIAL ONE (07:39)
[2020-05-13] MEDS: INSULIN LISPRO 100 UNITS/ML PEN SUBCU SCH ×4 (07:59→19:52)
[2020-05-13] MEDS: cefTRIAXone SODIUM 1 GM in SODIUM CHL 0.9% 50ML MIN-BAG+ 50 ML IVPB SCH (08:00)
[2020-05-13] MEDS: BIFIDOBACTERIUM INFANTIS 4 MG CAP PO SCH (08:02)
[2020-05-13] MEDS ORDERED: SPIRONOLACTONE 200 MG PO SCH (09:00)
[2020-05-13] MEDS: SPIRONOLACTONE 25 MG TAB PO SCH (10:55)
[2020-05-13] MEDS: FUROSEMIDE 40 MG TAB PO SCH ×2 (10:55→19:57)
--- NOTE | 2020-05-13 13:35 | PN ---
SUPERVISING PHYSICIAN: Jeffy Martell MD DATE: 05/13/20 SUBJECTIVE: The patient is lying in bed. He is confused. He denies nausea or vomiting. He is oriented to person, but has difficulty answering questions other than simple yes/no questions. According to nursing, he has been fairly cooperative. OBJECTIVE: VITAL SIGNS: Temperature 98, heart rate 102, blood pressure 120/74, respiratory rate 18, O2 saturation 99% on room air. RESPIRATORY: Essentially clear to auscultation bilaterally. He is slightly diminished throughout. CARDIAC: Regular rate and rhythm. At times, he is slight tachycardic. GASTROINTESTINAL: Abdomen is soft. It is only mildly distended with a mild amount of ascites. He is diffusely, but mildly tender throughout. There is no rebound tenderness. NEUROLOGIC: Awake, alert and oriented to person only. LABORATORY: WBCs 7,100, hemoglobin 10.4, hematocrit 31. He has a left shift on his differential. Electrolytes are basically within normal limits except for calcium is low at 7.3. Total bilirubin is 8.1. Alkaline phosphatase is 149. Ammonia 62. Serum total protein 5.6, albumin 1.8. MICROBIOLOGY: Preliminary blood cultures are negative to date. All other labs and films have been reviewed via the EMR. ASSESSMENT: 1. 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 2. Urinary tract infection. Cultures pending. 3. COVID positive with no signs of current symptoms. 4. Diabetes mellitus, type 2. 5. History of hepatitis C. PLAN: We will continue present supportive care. I did consult Dr. Mirza, general surgeon, in regards to his moderate ascites per his abdominal sonogram. His q.2h. lactulose has been discontinued and he will go to his routine scheduled dosing of lactulose 3 times daily. I have ordered lab including an ammonia in the morning. Hopefully, we can stabilize him and get him sent back to [facility]. We will also monitor his clinical presentation due to COVID although right now he is showing no obvious signs or symptoms. We will follow and treat as needed. #[id number] [facility]
[2020-05-13] MEDS: AZITHROMYCIN IV 500 MG in SODIUM CHLORIDE 0.9% 250ML 250 ML IVPB SCH (19:56)
[2020-05-13] MEDS ORDERED: ACETAMINOPHEN 325 MG TAB ONE (20:43)
[2020-05-13] MEDS ORDERED: ACETAMINOPHEN 325 MG TAB PO PRN (20:44)
[2020-05-13] MEDS ORDERED: ACETAMINOPHEN 325 MG TAB PO ONE (21:00)
[2020-05-13] MEDS ORDERED: ZIPRASIDONE INJ 20 MG/ML VIAL IM SCH (21:35)
[2020-05-14 05:26] VITALS: O2SAT 95
[2020-05-14] MEDS ORDERED: PANTOPRAZOLE SODIUM TAB 40 MG PO SCH (06:30)
[2020-05-14] MEDS: LACTULOSE SYRUP 20 GM/30 ML UD PO SCH (08:47)
[2020-05-14] MEDS: SPIRONOLACTONE 25 MG TAB PO SCH (08:47)
[2020-05-14] MEDS: BIFIDOBACTERIUM INFANTIS 4 MG CAP PO SCH (08:47)
[2020-05-14] MEDS: cefTRIAXone SODIUM 1 GM in SODIUM CHL 0.9% 50ML MIN-BAG+ 50 ML IVPB SCH ×2 (08:48→08:54)
[2020-05-14] MEDS ORDERED: FUROSEMIDE 40 MG TAB PO SCH (09:00)
[2020-05-14] MEDS: INSULIN LISPRO 100 UNITS/ML PEN SUBCU SCH ×2 (09:00→13:45)
[2020-05-14] MEDS ORDERED: LACTULOSE SYRUP 20 GM/30 ML UD PO ONE (11:00)
[2020-05-14 16:49] VITALS: BP 104/66; TEMP 98
--- NOTE | 2020-05-14 20:24 | DS ---
SUPERVISING PHYSICIAN: Jeffy Martell M.D. DISCHARGE DIAGNOSIS: 1. 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 2. Poor medical compliance as the [facility]. 3. Urinary tract infection with cultures pending. 4. COVID positive with no current signs or symptoms. 5. Diabetes mellitus, type 2. 6. History of hepatitis C. HISTORY OF PRESENT ILLNESS: This is a 54 year-old male patient who [facility] local jail. He was sent to the Emergency Room after it was reported that the patient was refusing to take his medications, including his Lactulose. He had altered mental status. He has a history of hepatitis C and end stage liver failure with cirrhosis. He has been seen in the Emergency Room on 05/05/20 for altered mental status with elevated ammonia and he was transferred to another hospital for continuation. He was [facility] to the jail and his ammonia level in the Emergency Room was 156 with a total bilirubin of 6.1. White count was within normal limits. He did have a slight left shift. He was COVID positive. He was admitted for hepatic encephalopathy secondary to elevated ammonia levels with further management and evaluation. He was admitted in stable condition. HOSPITAL COURSE: He was admitted and placed in COVID isolation, but at this time was not treated for COVID, except for prophylactic care. He had no signs or symptoms. Due to lack of symptoms, it was not warranted to do the routine COVID treatment. He was placed on Ceftriaxone for the urinary tract infection and initially his ultrasound said he had moderate ascites, although clinically the patient's abdomen showed minimal ascites. He was given Lactulose every 2 hours until he had 2 bowel movements and then it was transitioned to his routine t.i.d. dosing. His ammonia levels improved. His mental status improved. He was on Protonix for ulcer prophylaxis and Lovenox was held due to platelet count being somewhat low at 76,000. He received some albumin over the next 24 hours. He continued to improve mentally. His vital signs were stable. His mental status stabilized. Initially his ammonia level went down to 41, but did increase slightly, although he had no change in mental status and so his Lactulose was increased from 3 to 4 times daily. Today, he will be discharged to [facility] in stable condition. LABORATORY: WBCs were stable at 5.3 with a hemoglobin of 9.7 and hematocrit of 28.7. Initially he had a left shift on differential but that has normalized. Electrolytes are basically within normal limits with the exception of his calcium was slightly low at 7.2 and his magnesium was 1.6. He did receive supplementation of magnesium. His total bilirubin went as high as 8.2 with it being 3.7 today. Alkaline phosphatase was high at 159, ammonia was 156 on admission. Urinalysis showed 8.5 of urine pH, small amt of urine bilirubin and greater than 8 urine urobilinogen. Preliminary blood cultures show no growth after 48 hours. Abdominal ultrasound showed: 1. Liver small and echogenic with lobulated capsule. This is consistent with cirrhosis. Physiologic hepatopetal flow in the portal vein. No enlarged ducts. Pancreas not well seen. Moderate ascites. 2. Gallbladder surgically absent. Non-tender abdominal wall with transducer pressure. Common bile duct caliber physiologic. 3. Minimal echogenicity of the renal cortex with normal thickening. Otherwise unremarkable. Dr. Mirza had been consulted due to the ascites, but felt it was only minimal and agreed that it did not need draining. DISCHARGE PLAN: The patient will be discharged to [facility] in fair condition. He will be placed in COVID isolation. He is to resume his previous diet and increase his activity as tolerated. He is to resume his previous medications except for his lactulose and he is to increase his dosage to 30 mL 4 times daily. Previously, it had been 3 times daily. He is to followup with Dr. Devlin within the next week or so. He has been discharged on no new medications. He is to return to the hospital or followup with Dr. Devlin for any problems or complications. DISCHARGE MEDICATIONS: 1. Furosemide. 2. Zofran. 3. Spironolactone. 4. NovoLog insulin. 5. Magnesium oxide. 6. Acetaminophen. 7. Carboxymethylcellulose sodium ophthalmic. 8. Lactulose 30 mL q.i.d. #[id number] [facility]
== END 2020-05-14 15:45 | DRG 441 ==
LOC: ER 10:20 → UNDOADMOB 15:59 → MS 15:59 → OBSVTOIN 15:59
PROVIDERS: ADMIT Nurse Practitioner Family; ATTEND Nurse Practitioner Acute Care
DX: K72.90 Hepatic failure, unspecified without coma (principal); U07.1 COVID-19; N39.0 Urinary tract infection, site not specified; Z91.14 Patient's other noncompliance with medication regimen; E11.9 Type 2 diabetes mellitus without complications; B19.20 Unspecified viral hepatitis C without hepatic coma; K74.60 Unspecified cirrhosis of liver; I10 Essential (primary) hypertension; Z88.3 Allergy status to other anti-infective agents; Z79.899 Other long term (current) drug therapy; Z87.891 Personal history of nicotine dependence; Z79.82 Long term (current) use of aspirin

== ENCOUNTER 2020-05-16 01:59 | Inpatient (IN) | payer MEDICARE ==
[2020-05-16] MEDS ORDERED: LACTULOSE SYRUP 20 GM/30 ML UD PO ONE ×3 (02:09→11:38)
--- NOTE | 2020-05-16 02:30 | RAD ---
EXAM: XR Chest, 1 View CLINICAL HISTORY: The patient is 54 years old and is Male; ams TECHNIQUE: Frontal view of the chest. COMPARISON: No relevant prior studies available. FINDINGS: Lungs: Patchy diffuse bilateral airspace disease. Low lung volumes. Pleural space: Unremarkable. No pneumothorax. Heart: Unremarkable. No cardiomegaly. Mediastinum: Unremarkable. Bones/joints: Unremarkable. Upper abdomen: Elevation of the right hemidiaphragm. Air-filled stomach and bowel. IMPRESSION: 1. Patchy diffuse bilateral airspace disease. 2. Elevation of the right hemidiaphragm. 3. Low lung volumes. 4. Air-filled stomach and bowel. Electronically signed by: Sandro Louie MD 05/16/2020 2:29 AM INTELLIGENCE MANAGER
[2020-05-16] MEDS ORDERED: LIDOCAINE 2 % GEL 5 ML TUBE TOP ONE (03:39)
--- NOTE | 2020-05-16 04:16 | RAD ---
EXAM: XR Chest, 1 View CLINICAL HISTORY: The patient is 54 years old and is Male; for ngt placement TECHNIQUE: Frontal view of the chest. COMPARISON: Chest x-ray 05/16/2020 2:21 AM FINDINGS: Lungs: Patchy diffuse bilateral airspace disease. Low lung volumes. Pleural space: Unremarkable. No pneumothorax. Heart: Unremarkable. No cardiomegaly. Mediastinum: Unremarkable. Bones/joints: Unremarkable. Tubes, lines and devices: Nasogastric tube with tip and sidehole within a distended stomach. Upper abdomen: Elevation of the right hemidiaphragm. Air-filled stomach and bowel. Surgical clips in the right upper quadrant. IMPRESSION: 1. Patchy diffuse bilateral airspace disease. 2. Elevation of the right hemidiaphragm. 3. Low lung volumes. 4. Air-filled stomach and bowel. 5. Nasogastric tube with tip and sidehole within a distended stomach. Electronically signed by: Sandro Louie MD 05/16/2020 4:14 AM [facility]
[2020-05-16] MEDS ORDERED: DEXAMETHASONE INJ 4 MG/ML VIAL IV ONE (04:47)
--- NOTE | 2020-05-16 04:56 | ED.PDOC ---
History of Present Illness - General Source: EMS notes reviewed, EMS, [facility] records Exam Limitations: clinical condition - History of Present Illness Initial Comments: The patient is a 54-year-old male with end-stage cirrhosis presenting f or what appears to be the third time in a couple of weeks for hepatic encephalopathy. The patient apparently has difficulty with compliance with lactulose. Additionally the patient does have coronavirus and does appear to be developing possibly something of a pulmonary infiltrate related to that or related to fluid overload from the cirrhosis. It is difficult to tell currently. No evidence of any fever. No evidence of any abdominal pain. He has not been throwing up. The patient was released from the hospital less than 2 days ago from his last episode of hepatic encephalopathy. He does have chronic low platelets as well related to this. He of course does have a low albumin and correspondingly low calcium level as well. Timing/Duration: unsure Severity: severe <Joey Jenkins - Last Filed: 05/16/20 04:53> <Nadege Curry - Last Filed: 05/16/20 13:07> - General Time Seen by Provider: 05/16/20 02:08 - History of Present Illness Allergies/Adverse Reactions: Allergies Diphenhydramine [From Benadryl] Allergy (Verified 05/12/20 11:16) Home Medications: Ambulatory Orders Furosemide 40 mg PO BID 05/05/20 Insulin Aspart [Novolog Flexpen] 100 unit SC AC 05/05/20 Spironolactone 200 mg PO DAILY 05/05/20 Acetaminophen [Tylenol] 325 mg PO Q4H PRN 05/06/20 Carboxymethylcellulose Sodium [Theratears] 2 drop OP Q2H PRN 05/06/20 Magnesium Oxide 400 mg PO TID 05/06/20 Lactulose Syrup [Chronulac] 30 ml PO QID #120 ud 05/14/20 Guaifenesin [Pharbinex] 400 mg PO DAILY 05/16/20 Review of Systems - Review of Systems Review of Systems: 05/16/20 04:56 Patient unable to give information secondary to current obtunded state. <Joey Jenkins - Last Filed: 05/16/20 04:53> Past Medical History (General) - Patient Medical History Hx Seizures: No Hx Stroke: No Hx Dementia: No Hx Asthma: No Hx of COPD: No Hx Cardiac Disorders: No Hx Congestive Heart Failure: No Hx Pacemaker: No Hx Hypertension: No Hx Thyroid Disease: No Hx Diabetes: Yes Hx Gastroesophageal Reflux: No Hx Renal Disease: No Hx Cancer: No Hx of HIV: No Hx Hepatitis C: Yes Hx MRSA: No - Vaccination History Hx Tetanus, Diphtheria Vaccination: Yes Hx Influenza Vaccination: No Hx Pneumococcal Vaccination: Yes - Social History Hx Tobacco Use: No Hx Alcohol Use: Yes - 0CC 2-3 MONTHS Hx Substance Use: No Hx Substance Use Treatment: No Hx Depression: No - Female History Patient : No <Joey Jenkins - Last Filed: 05/16/20 04:53> Family Medical History - Family History Mother Family History: Unknown Living Status: Unknown <Joey Jenkins - Last Filed: 05/16/20 04:53> Physical Exam - Physical Exam General Appearance: Other - The patient is drowsy muttering something over and over and over again. He does not respond to commands. He does move all extremities. No difficulty with controlling his airway. Eye Exam: bilateral normal - Mild yellowing of the conjunctiva Ears, Nose, Throat: normal pharynx Neck: full range of motion - Mild JVD., supple Respiratory: no respiratory distress, no accessory muscle use, rhonchi - Mild Cardiovascular/Chest: normal peripheral pulses, regular rate, rhythm, other - +1 to +2 edema to bilateral lower extremities. Peripheral Pulses: radial,right: 2+, radial,left: 2+ Gastrointestinal/Abdominal: non tender - No guarding. No rebound., soft Rectal Exam: deferred Back Exam: no vertebral tenderness Extremity: normal range of motion - Passive mainly, normal capillary refill, pedal edema Neurologic: other - The patient is currently delirious due to hepatic encephalop athy. He does not respond to commands. See above. Skin Exam: other - Mild jaundice <Joey Jenkins - Last Filed: 05/16/20 04:53> Progress - Progress Progress: 05/16/20 05:00 The patient is a 54-year-old male presenting for the third time in the last couple of weeks secondary to hepatic encephalopathy. He additionally does have coronavirus currently. It is difficult to tell with certainty if he truly has a coronavirus pneumonia or that this is fluid overload secondary to the cirrhosis. The patient is receiving multiple rounds of lactulose here. If it were not for the possibility of the patient already having some fluid overload in the lungs I would give him at least a small amount of IV fluids to help with the hepatic encephalopathy. For now, unless clinically indicated I will hold on the diuretics until he responds mentally. The patient may be a good candidate for rifaximin in addition to the lactulose. He will need to restart the diuretic sometime within the next day. I see no evidence of other acute infection at this time. We will attempt to get a repeat urinalysis when the patient wakes up later to confirm clearance of a UTI that he had in the not too distant past. For now the patient is being watched and monitored in the emergency room is there are no inpatient beds available. He appears to be resting comfortably currently. Blood sugars will need to be watched, however given the appearance of the checks x-ray I am going to go ahead and administer a dose of IV dexamethasone. 05/16/20 05:03 - Results/Orders Results/Orders: Laboratory Tests 05/16/20 05/16/20 05/16/20 02:09 02:31 02:31 WBC 4.4 L RBC 2.98 L Hgb 9.3 L Hct 27.2 L MCV 91.3 MCH 31.2 H MCHC 34.2 RDW 19.7 H Plt Count 50 L MPV 8.8 Absolute Neuts (auto) 3.40 Absolute Lymphs (auto) 0.50 L Absolute Monos (auto) 0.40 Absolute Eos (auto) 0.00 Absolute Basos (auto) 0.00 Neutrophils % 78.3 H Lymphocytes % 12.6 L Monocytes % 8.1 Eosinophils % 0.5 L Basophils % 0.5 PT INR PTT (SP) Fibrinogen D-Dimer, Quantitative Sodium 131 L Potassium 4.1 Chloride 103 Carbon Dioxide 24 Anion Gap 8.1 L BUN 11 Creatinine 0.43 L BUN/Creatinine Ratio 25.6 H POC Glucose 185 H D Random Glucose 193 H D Serum Osmolality 267.3 L Lactic Acid Calcium 6.7 L* Ferritin Total Bilirubin 2.5 H* D AST 36 ALT 28 Alkaline Phosphatase 159 H Ammonia LD Total Creatine Kinase 41 CK-MB (CK-2) 1.2 CK-MB (CK-2) % Not Reportable Troponin I 0.02 C-Reactive Protein B-Natriuretic Peptide 34.2 Serum Total Protein 5.4 L Albumin 1.5 L Globulin 3.9 H Albumin/Globulin Ratio 0.4 L Lipase 28 05/16/20 05/16/20 05/16/20 02:31 02:31 02:31 WBC RBC Hgb Hct MCV MCH MCHC RDW Plt Count MPV Absolute Neuts (auto) Absolute Lymphs (auto) Absolute Monos (auto) Absolute Eos (auto) Absolute Basos (auto) Neutrophils % Lymphocytes % Monocytes % Eosinophils % Basophils % PT 17.7 H INR 1.79 H PTT (SP) 42.6 H Fibrinogen D-Dimer, Quantitative 1890.0 H* Sodium Potassium Chloride Carbon Dioxide Anion Gap BUN Creatinine BUN/Creatinine Ratio POC Glucose Random Glucose Serum Osmolality Lactic Acid 1.5 Calcium Ferritin 183.3 Total Bilirubin AST ALT Alkaline Phosphatase Ammonia LD Total Creatine Kinase CK-MB (CK-2) CK-MB (CK-2) % Troponin I C-Reactive Protein B-Natriuretic Peptide Serum Total Protein Albumin Globulin Albumin/Globulin Ratio Lipase 05/16/20 05/16/20 05/16/20 02:31 02:31 03:03 WBC RBC Hgb Hct MCV MCH MCHC RDW Plt Count MPV Absolute Neuts (auto) Absolute Lymphs (auto) Absolute Monos (auto) Absolute Eos (auto) Absolute Basos (auto) Neutrophils % Lymphocytes % Monocytes % Eosinophils % Basophils % PT INR PTT (SP) Fibrinogen 135 L D-Dimer, Quantitative Sodium Potassium Chloride Carbon Dioxide Anion Gap BUN Creatinine BUN/Creatinine Ratio POC Glucose Random Glucose Serum Osmolality Lactic Acid Calcium Ferritin Total Bilirubin AST ALT Alkaline Phosphatase Ammonia 238 H* D LD Total 187 H Creatine Kinase CK-MB (CK-2) CK-MB (CK-2) % Troponin I C-Reactive Protein 3.1 H B-Natriuretic Peptide Serum Total Protein Albumin Globulin Albumin/Globulin Ratio Lipase Chest x-ray shows bilateral pulmonary infiltrates. EKG shows normal sinus rhythm at 80 bpm. Normal R wave progression. No ST segment or T wave changes indicative of acute ischemia. Normal QT interval. <Joey Jenkins - Last Filed: 05/16/20 04:53> - Results/Orders Results/Orders: patient GCS 12, still not answering appropriately. given albumin IV. ammonia level improving. Pending bed availability. <Nadege Curry - Last Filed: 05/16/20 13:07> Departure <Joey Jenkins - Last Filed: 11/20/20 04:53> <Patricio,Nadege - Last Filed: 05/16/20 13:07> - Departure Clinical Impression: Hepatic encephalopathy, Pneumonia due to human coronavirus Disposition: Admit Patient Condition: Poor Home Medications: Ambulatory Orders Furosemide 40 mg PO BID 05/05/20 Insulin Aspart [Novolog Flexpen] 100 unit SC AC 05/05/20 Spironolactone 200 mg PO DAILY 05/05/20 Acetaminophen [Tylenol] 325 mg PO Q4H PRN 05/06/20 Carboxymethylcellulose Sodium [Theratears] 2 drop OP Q2H PRN 05/06/20 Magnesium Oxide 400 mg PO TID 05/06/20 Lactulose Syrup [Chronulac] 30 ml PO QID #120 ud 05/14/20 Guaifenesin [Pharbinex] 400 mg PO DAILY 05/16/20
[2020-05-16] MEDS ORDERED: ALBUMIN IVPB ONE (07:19)
[2020-05-16] MEDS ORDERED: HALOPERIDOL LACTATE INJ 5 MG/ML VIAL IM ONE (11:47)
--- NOTE | 2020-05-16 12:16 | HP ---
SUPERVISING PHYSICIAN: Jeffy Martell MD CHIEF COMPLAINT: Decreased level of consciousness. HISTORY OF PRESENT ILLNESS: This is a 54-year-old male patient with a known history of hepatitis C and liver failure who has a history of admissions for hepatic encephalopathy as well. He came to the hospital with altered mental status as he has in the past. He was found to have elevated ammonia level. There were initially no beds on the Medical/Surgical Unit, so he was held in the ER. An NG tube was placed and he was given lactulose. He had subsequent improvement in his ammonia level which initially was 238 and then improved to 139. However, given his lack of significant improvement in his level of consciousness, he was referred for admission. At the time of admission, the patient is lethargic, but he does arouse to voice and goes right back to sleep. He is able to swallow. He has already taken his NG tube out, but other than that, he is hemodynamically stable. PAST MEDICAL HISTORY: 1. Hepatitis C. 2. Cirrhosis. 3. Diabetes mellitus, type 2. 4. Hypertension. PAST SURGICAL HISTORY: 1. Cholecystectomy. MEDICATIONS: Please see [facility]zen[facility] list once verified in the computer. ALLERGIES: BENADRYL. FAMILY HISTORY: Cannot be obtained from the patient at this time. SOCIAL HISTORY: Cannot obtain from the patient directly, however, apparently he has a history of smoking and drinking. REVIEW OF SYSTEMS: Cannot be obtained due to the patient's mental status. PHYSICAL EXAMINATION: VITAL SIGNS: Blood pressure 120/80, heart rate 72, respiratory rate 18, temperature 97.7, oxygen saturation 98% on 3 liters via nasal cannula. GENERAL: Mr. Manuel is a 54-year-old male patient who is ill in appearance, but in no active distress currently. NEUROLOGIC: The patient is lethargic. He does awaken to voice and follow simple commands. He does not know exactly where he is or when, but he does respond somewhat appropriately. LUNGS: Diminished in the bases, but otherwise clear to auscultation bilaterally. CARDIOVASCULAR: Regular rate and rhythm. Normal S1, S2. ABDOMEN: Distended, but soft. No significant tenderness to palpation. Positive bowel sounds. EXTREMITIES: Lower extremities with no edema. LABORATORY: Labs as discussed in history of present illness show an improvement in his ammonia level from 238 to 139. His chemistry shows sodium 131, creatinine 0.43, glucose 193, lactic acid 1.5. Calcium low at 6.7, but is in the normal range when corrected for his albumin. CRP 3.1. D-dimer 1890. WBCs 4.4, hemoglobin 9.3, hematocrit 27.2, platelet count 50. RADIOLOGY: Chest x-ray shows diffuse bilateral patchy infiltrates. Elevated right hemidiaphragm. IMPRESSION: 1. Hepatic encephalopathy. 2. 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 3. Type 2 diabetes mellitus. 4. History of hepatitis C with cirrhosis. 5. Anemia. 6. Thrombocytopenia. PLAN: The patient will be admitted and placed back on his lactulose. I will also continue his Lasix and Aldactone. The patient is on a little bit of oxygen right now at 3 liters via nasal cannula, but his O2 saturations are 99%. We will wean this off. Once we can get his ammonia level in a decent range and mental status improves, he can go back to the detention. I do not feel at this time he is symptomatic regarding his COVID-19, so I will not aggressively treat that with Remdesivir at this time in addition to the fact that he has liver dysfunction. We will check labs to ensure he does not have subsequent drop in his hemoglobin requiring transfusion. [facility][id number]
[2020-05-16] MEDS ORDERED: SODIUM CHLORIDE 0.9% (FLUSH) 10 ML SYG IV PRN (14:27)
[2020-05-16] MEDS: MAGNESIUM OXIDE 400 MG TAB PO SCH ×2 (16:41→21:43)
[2020-05-16] MEDS: SPIRONOLACTONE 25 MG TAB PO SCH (16:41)
[2020-05-16] MEDS: LACTULOSE SYRUP 20 GM/30 ML UD PO SCH ×2 (16:42→21:43)
[2020-05-16] MEDS: IV SET AND CAP CHANGE INJ INJ SCH (16:42)
[2020-05-16] MEDS ORDERED: FUROSEMIDE 40 MG TAB PO SCH (17:00)
[2020-05-16] MEDS ORDERED: ENOXAPARIN SODIUM 40 MG/0.4 ML SYG SUBCU ONE (19:53)
[2020-05-16] MEDS: ENOXAPARIN SODIUM 40 MG/0.4 ML SYG SUBCU SCH (21:43)
[2020-05-16] MEDS ORDERED: SODIUM CHL 0.9% 100ML MINI-BAG 100 ML IVPB ONE (22:57)
[2020-05-16] MEDS ORDERED: CEFEPIME 2 GM VIAL ONE (22:57)
[2020-05-16] MEDS ORDERED: VANCOMYCIN PER PHARMACY INJ SCH (23:00)
[2020-05-16] MEDS: CEFEPIME 2 GM in SODIUM CHL 0.9% 100ML MINI-BAG 100 ML IVPB SCH (23:01)
[2020-05-16] MEDS: INSULIN LISPRO 100 UNITS/ML PEN SUBCU SCH (23:04)
[2020-05-17] MEDS: PANTOPRAZOLE SODIUM IV 40 MG VIAL IV SCH (06:37)
--- NOTE | 2020-05-17 06:37 | RAD ---
EXAM: XR Chest, 1 View CLINICAL HISTORY: The patient is 54 years old and is Male; decreasing O2 sat with w/ 15L HFNC in place TECHNIQUE: Single view of the chest. COMPARISON: May 16, 2020 4:06 AM. FINDINGS: Lungs: Left lower lobe consolidation. Right basilar atelectasis. Pleural space: Unremarkable. No pneumothorax. Heart: The cardiac silhouette is enlarged versus artifact of AP technique. Cardiomediastinal silhouette is not significantly changed given the differences in technique. Mediastinum: See above. Bones/joints: The bones and joints are unchanged as visualized. Upper abdomen: Elevated right hemidiaphragm. Gaseous distention of the visualized upper abdomen, slightly decreased compared with the previous exam. Other findings: No definite free air. IMPRESSION: 1. Elevated right hemidiaphragm. Gaseous distention of the visualized upper abdomen, slightly decreased compared with the previous exam. 2. Left lower lobe consolidation. Correlate clinically for infection. 3. Right basilar atelectasis. Electronically signed by: Jackie Cloud MD 05/17/2020 6:35 AM [facility]
[2020-05-17] MEDS: INSULIN LISPRO 100 UNITS/ML PEN SUBCU SCH ×4 (07:30→21:17)
[2020-05-17] MEDS ORDERED: FUROSEMIDE INJ 100 MG/10 ML VIAL IV ONE (08:01)
[2020-05-17] MEDS ORDERED: REMDESIVIR 200 MG in SODIUM CHLORIDE 0.9% 250ML 250 ML IVPB ONE (08:46)
[2020-05-17] MEDS ORDERED: REMDESIVIR 100 MG in SODIUM CHLORIDE 0.9% 250ML 250 ML IVPB SCH (09:00)
[2020-05-17] MEDS: SPIRONOLACTONE 25 MG TAB PO SCH (09:35)
[2020-05-17] MEDS: LACTULOSE SYRUP 20 GM/30 ML UD PO SCH ×4 (09:35→20:59)
[2020-05-17] MEDS: guaiFENesin ER TAB 600 MG TAB PO SCH (09:36)
[2020-05-17] MEDS: MAGNESIUM OXIDE 400 MG TAB PO SCH ×3 (09:36→21:00)
[2020-05-17] MEDS ORDERED: DEXAMETHASONE INJ 10 MG/ML VIAL ONE (09:38)
[2020-05-17] MEDS: DEXAMETHASONE INJ 4 MG/ML VIAL IV SCH (09:46)
[2020-05-17] MEDS: MORPHINE SULFATE INJ 10 MG/ML VIAL IV PRN ×4 (09:48→23:58)
[2020-05-17] MEDS: VANCOMYCIN HCL INJ 1,000 MG, VANCOMYCIN HCL INJ 500 MG in SODIUM CHLORIDE 0.9% 250ML 25... IVPB SCH ×2 (09:50→21:00)
--- NOTE | 2020-05-17 11:45 | PN ---
SUPERVISING PHYSICIAN: Jeffy Martell MD DATE: 05/17/20 SUBJECTIVE: The patient is more awake now than he was yesterday. He does not complain of any confusion but he does have increased shortness of breath. I was called early this morning due to desaturations and increase in oxygen requirements. He fought placement of high-flow oxygen at 10 liters and his 02 saturations were still in the low 80s. I spoke with him about utilizing an IV and maybe subsequently be intubated. The patient wants everything done at this time. He has been placed on an IV. I have reviewed his chest x-ray which does look worse as well as his ABG which showed hypoxemia. OBJECTIVE: VITAL SIGNS: Blood pressure 113/68, heart rate 100, respiratory rate 28, temperature 98.7, oxygen saturation 95% on non-invasive ventilation. GENERAL: The patient is a 54 year-old male patient who is in mild respiratory distress. NEUROLOGICAL: He is alert. LUNGS: Bilateral rales in airspaces. HEART: Regular rate and rhythm, normal S1, S2, tachycardiac. ABDOMEN: Rounded, ascites noted. No significant tenderness to palpation. EXTREMITIES: Lower extremities with 2+ edema. 2+ pulses with capillary less than 2 seconds. LABORATORY: White count 12.3, hemoglobin 10.0, hematocrit 29.4, platelet count 58,000. Chemistry with a sodium of 129, potassium 4.2, chloride 102, C02 of 21, BUN 15, creatinine 0.48. Glucose 326, calcium 11.1, total bilirubin of 3.2. AST 49, ALT 29, ammonia 47, albumin 1.8 Chest x-ray shows decreased inspiratory effort, elevated right hemidiaphragm. Bilateral patchy infiltrates with no advance basis. IMPRESSION: 1. Acute hypoxic respiratory failure requiring noninvasive ventilation. 2. COVID-19 pneumonitis. 3. Hepatic encephalopathy. 4. Type 2 diabetes mellitus. 5. History of hepatitis C with cirrhosis. 6. Anemia. 7. Thrombocytopenia. 8. Gram positive cocci in blood cultures/ PLAN: We will continue IV and wean as tolerated. He was quite anxious with this. He required some morphine for assistance to tolerate. I did discuss with him intubation if necessary and he agreed to this. I am going to go ahead and start him on Remdesivir and dexamethasone. I was called with positive gram positive cocci and on one of the blood cultures so I did start him on empiric antibiotics. His hepatic encephalopathy is improved with a more normal ammonia level. I will continue the lactulose and all other medications at this time. Critical care time spent in evaluation and management of the patient, coordination of care with the nursing and respiratory staff, chart review, order builder, as well as documentation is 45 minutes. #[id number] [facility]
[2020-05-17] MEDS: CEFEPIME 2 GM in SODIUM CHL 0.9% 100ML MINI-BAG 100 ML IVPB SCH ×2 (11:52→22:45)
[2020-05-17] MEDS ORDERED: SODIUM CHLORIDE 0.9% 250ML 0 ML ONE (12:18)
[2020-05-17] MEDS ORDERED: REMDESIVIR IV 100 MG VIAL ONE (12:19)
[2020-05-17] MEDS ORDERED: CEFEPIME 2 GM VIAL ONE ×2 (13:50→22:42)
[2020-05-17] MEDS ORDERED: SODIUM CHL 0.9% 100ML MINI-BAG 100 ML IVPB ONE (13:51)
[2020-05-17] MEDS: FUROSEMIDE INJ 40 MG/4 ML VIAL IV SCH (20:59)
[2020-05-17] MEDS: ENOXAPARIN SODIUM 40 MG/0.4 ML SYG SUBCU SCH (21:00)
[2020-05-18] MEDS ORDERED: MORPHINE SULFATE INJ 10 MG/ML VIAL ONE ×2 (02:31→13:14)
[2020-05-18] MEDS: MORPHINE SULFATE INJ 10 MG/ML VIAL IV PRN ×2 (02:37→13:21)
[2020-05-18] MEDS: PANTOPRAZOLE SODIUM IV 40 MG VIAL IV SCH (05:53)
[2020-05-18] MEDS: INSULIN LISPRO 100 UNITS/ML PEN SUBCU SCH ×4 (08:56→22:07)
[2020-05-18] MEDS: LACTULOSE SYRUP 20 GM/30 ML UD PO SCH ×4 (09:40→21:22)
[2020-05-18] MEDS: SPIRONOLACTONE 25 MG TAB PO SCH (09:40)
[2020-05-18] MEDS: MAGNESIUM OXIDE 400 MG TAB PO SCH ×3 (09:41→21:23)
[2020-05-18] MEDS: VANCOMYCIN HCL INJ 1,000 MG, VANCOMYCIN HCL INJ 500 MG in SODIUM CHLORIDE 0.9% 250ML 25... IVPB SCH ×2 (09:42→22:06)
[2020-05-18] MEDS: guaiFENesin ER TAB 600 MG TAB PO SCH (09:42)
[2020-05-18] MEDS ORDERED: DEXAMETHASONE INJ 10 MG/ML VIAL ONE (09:56)
[2020-05-18] MEDS: DEXAMETHASONE INJ 4 MG/ML VIAL IV SCH (09:57)
[2020-05-18] MEDS: FUROSEMIDE INJ 40 MG/4 ML VIAL IV SCH ×2 (09:57→21:23)
[2020-05-18] MEDS ORDERED: CEFEPIME 2 GM VIAL ONE ×2 (12:13→21:25)
[2020-05-18] MEDS ORDERED: SODIUM CHL 0.9% 100ML MINI-BAG 100 ML IVPB ONE ×2 (12:14→21:25)
[2020-05-18] MEDS ORDERED: IPRATROPIUM/ALBUTEROL 3 ML VIAL NEB ONE ×2 (12:41→16:36)
[2020-05-18] MEDS: CEFEPIME 2 GM in SODIUM CHL 0.9% 100ML MINI-BAG 100 ML IVPB SCH ×2 (13:23→22:08)
[2020-05-18] MEDS: IPRATROPIUM/ALBUTEROL 3 ML VIAL NEB PRN (13:30)
--- NOTE | 2020-05-18 16:56 | PN ---
SUPERVISING PHYSICIAN: Jeffy Martell MD DATE: 05/18/20 SUBJECTIVE: The patient is sleeping, he awakens easily. He has no complaint at this time. Nursing said he has had no problems other than he gets somewhat agitated. OBJECTIVE: VITAL SIGNS: Temperature 97.6, heart rate 73, blood pressure 101/57, respiratory rate 22, O2 91% on BiPAP. It did drop as low as 87% during the night. RESPIRATORY: A few scattered rhonchi and diminished throughout. CARDIAC: Regular rate and rhythm. NEUROLOGIC: Awake, alert. MICROBIOLOGY: Preliminary aerobic blood cultures show gram positive cocci. Anaerobic blood cultures show no growth. All other labs and films have been reviewed via the EMR. ASSESSMENT: 1. Acute hypoxic respiratory failure requiring noninvasive ventilation. 2. COVID-19 pneumonitis. 3. Hepatic encephalopathy. 4. Type 2 diabetes mellitus. 5. History of hepatitis C with cirrhosis. 6. Anemia. 7. Thrombocytopenia. 8. Gram positive cocci in blood cultures. PLAN: We will continue present supportive care. We will continue with continue aggressive pulmonary hygiene. We will continue with routine COVID labs and medications. We will try to wean him down off BiPAP as he tolerates. We will monitor his blood cultures as sensitivities become available. I will check lab and chest x-ray in the morning. [facility][id number] [facility]
[2020-05-18] MEDS: IPRATROPIUM/ALBUTEROL 3 ML VIAL NEB SCH ×2 (17:05→20:25)
[2020-05-18] MEDS ORDERED: VANCOMYCIN HCL IVPB SCH (21:00)
[2020-05-18] MEDS ORDERED: [UNRECOGNIZED DRUG - OTHER] IVPB SCH (21:00)
[2020-05-18] MEDS ORDERED: FUROSEMIDE INJ 40 MG/4 ML VIAL ONE (21:12)
[2020-05-18] MEDS: ENOXAPARIN SODIUM 40 MG/0.4 ML SYG SUBCU SCH (21:22)
[2020-05-18] MEDS ORDERED: SODIUM CHLORIDE 0.9% 500ML 500 ML ONE (21:52)
[2020-05-18] MEDS ORDERED: VANCOMYCIN HCL INJ 500 MG VIAL ONE (21:52)
[2020-05-19] MEDS: IPRATROPIUM/ALBUTEROL 3 ML VIAL NEB SCH ×7 (00:15→23:40)
[2020-05-19] MEDS ORDERED: VANCOMYCIN HCL INJ 1,000 MG VIAL IVPB ONE (07:22)
[2020-05-19] MEDS ORDERED: SODIUM CHL 0.9% 250ML (AVIVA) 250 ML IVPB ONE (07:23)
[2020-05-19] MEDS ORDERED: SODIUM CHLORIDE 0.9% 500ML 500 ML ONE (07:23)
--- NOTE | 2020-05-19 08:04 | RAD ---
EXAM: XR Chest, 1 View CLINICAL HISTORY: The patient is 55 years old and is Male; [place] TECHNIQUE: Frontal view of the chest. COMPARISON: Chest x-ray 05/17/2020. FINDINGS: Lungs: Low lung volumes. Silhouetting of the left hemidiaphragm suggestive of left lower lobe consolidation or atelectasis. Diffuse bilateral airspace disease, similar to prior. Pleural space: Unremarkable. No pneumothorax. Heart: Unremarkable. No cardiomegaly. Mediastinum: Unremarkable. Bones/joints: Unremarkable. Upper abdomen: Elevation of the right hemidiaphragm. Air-filled distended bowel. IMPRESSION: 1. Diffuse bilateral airspace disease, similar to prior. 2. Silhouetting of the left hemidiaphragm suggestive of left lower lobe consolidation or atelectasis. Electronically signed by: Sandro Louie MD 05/19/2020 8:02 AM [facility]
[2020-05-19] MEDS ORDERED: MAGNESIUM SULFATE PREMIX 2GM 2 GM in PREMIX BAG 1 BAG IVPB ONE (08:19)
[2020-05-19] MEDS ORDERED: IPRATROPIUM/ALBUTEROL 3 ML VIAL NEB ONE (08:24)
[2020-05-19] MEDS: LACTULOSE SYRUP 20 GM/30 ML UD PO SCH ×5 (08:33→22:34)
[2020-05-19] MEDS: SPIRONOLACTONE 25 MG TAB PO SCH (08:33)
[2020-05-19] MEDS: MAGNESIUM OXIDE 400 MG TAB PO SCH ×4 (08:34→22:35)
[2020-05-19] MEDS ORDERED: VANCOMYCIN HCL IVPB SCH (09:00)
[2020-05-19] MEDS ORDERED: [UNRECOGNIZED DRUG - OTHER] IVPB SCH (09:00)
[2020-05-19] MEDS ORDERED: VANCOMYCIN HCL INJ 1,750 MG in SODIUM CHLORIDE 0.9% 500ML 500 ML IVPB SCH (09:00)
[2020-05-19] MEDS: INSULIN LISPRO 100 UNITS/ML PEN SUBCU SCH ×4 (10:14→22:35)
[2020-05-19] MEDS: DEXAMETHASONE INJ 10 MG/ML VIAL IV SCH (10:39)
[2020-05-19] MEDS: FUROSEMIDE INJ 40 MG/4 ML VIAL IV SCH ×2 (11:55→21:43)
[2020-05-19] MEDS: CEFEPIME 2 GM in SODIUM CHL 0.9% 100ML MINI-BAG 100 ML IVPB SCH ×2 (11:56→23:31)
[2020-05-19] MEDS: guaiFENesin ER TAB 600 MG TAB PO SCH (11:56)
[2020-05-19] MEDS: BIFIDOBACTERIUM INFANTIS 4 MG CAP PO SCH ×3 (11:57→22:34)
[2020-05-19] MEDS: DEXAMETHASONE INJ 4 MG/ML VIAL IV SCH (12:28)
[2020-05-19] MEDS: MORPHINE SULFATE INJ 10 MG/ML VIAL IV PRN (16:40)
--- NOTE | 2020-05-19 19:11 | PN ---
SUPERVISING PHYSICIAN: Kendell Hitchcock MD DATE: 05/19/20 SUBJECTIVE: The patient is sitting up in his bed eating. It is reported from nursing that he does not leave his Bi-PAP on. He tries to take if off and he drops into the 70s within a few minutes. I discussed his plan of care and his need to keep his oxygen on. He voiced understanding. OBJECTIVE: VITAL SIGNS: Temperature 97.3, heart rate 69, blood pressure 99/61, respiratory rate 16, oxygen saturation 90% on 60% on BiPAP. CARDIAC: Regular rate and rhythm. NEUROLOGIC: Awake, alert. LABORATORY: WBC 5.2, hemoglobin 9.5, hematocrit 27.6, platelet count 38, he has a left shift on his differential. PTT is 43.9 with fibrinogen of 136. D-dimer 881. Sodium 129, potassium 4.2, chloride 98, carbon dioxide 23, BUN 18, creatinine 0.4, glucose 297. Calcium 7.4, magnesium 1.6. Total bilirubin has improved to 2.4 Alkaline phosphatase 177, LD 298, C-reactive protein 3.8. Chest x-ray shows diffuse bilateral airspace disease similar to prior. Silhouetting of the left hemidiaphragm suggestive of left lower lobe consolidation or atelectasis. ASSESSMENT: 1. Acute hypoxic respiratory failure requiring noninvasive ventilation. 2. COVID-19 pneumonitis. 3. Hepatic encephalopathy, improved. 4. Type 2 diabetes mellitus. 5. History of hepatitis C with cirrhosis. 6. Anemia. 7. Thrombocytopenia. PLAN: We will continue present supportive care. Due to possible contaminants of his blood cultures, his vancomycin has been discontinued. Will continue aggressive pulmonary hygiene and adjust settings on the BiPAP as the patient requires. We will continue with routine COVID labs and medications. I have also scheduled some Ativan as well as p.r.n. Ativan. Will check his labs and chest x-ray in the morning. He has been given some mag supplementation. I have also checked ammonia level for in the morning. #[id number] [facility]
[2020-05-19] MEDS: IV SET AND CAP CHANGE INJ INJ SCH (21:42)
[2020-05-19] MEDS: INSULIN DETEMIR 100 UNITS/ML PEN SUBCU SCH (21:43)
[2020-05-19] MEDS: ENOXAPARIN SODIUM 40 MG/0.4 ML SYG SUBCU SCH (21:44)
[2020-05-20] MEDS: IPRATROPIUM/ALBUTEROL 3 ML VIAL NEB PRN (02:43)
[2020-05-20] MEDS ORDERED: PANTOPRAZOLE SODIUM IV 40 MG VIAL ONE (04:35)
[2020-05-20] MEDS: IPRATROPIUM/ALBUTEROL 3 ML VIAL NEB SCH ×5 (04:50→20:00)
[2020-05-20] MEDS: PANTOPRAZOLE SODIUM IV 40 MG VIAL IV SCH (06:03)
[2020-05-20] MEDS ORDERED: PANTOPRAZOLE SODIUM TAB 40 MG PO SCH (06:30)
[2020-05-20] MEDS ORDERED: MAGNESIUM SULFATE PREMIX 2GM 2 GM in PREMIX BAG 1 BAG IVPB ONE (09:09)
[2020-05-20] MEDS ORDERED: LACTULOSE SYRUP 20 GM/30 ML UD PO ONE (09:30)
[2020-05-20] MEDS: CEFEPIME 2 GM in SODIUM CHL 0.9% 100ML MINI-BAG 100 ML IVPB SCH ×2 (13:00→22:58)
[2020-05-20] MEDS: MAGNESIUM OXIDE 400 MG TAB PO SCH ×3 (17:19→21:12)
[2020-05-20] MEDS: BIFIDOBACTERIUM INFANTIS 4 MG CAP PO SCH ×2 (17:19→21:11)
[2020-05-20] MEDS: LACTULOSE SYRUP 20 GM/30 ML UD PO SCH ×4 (17:19→21:11)
[2020-05-20] MEDS: guaiFENesin ER TAB 600 MG TAB PO SCH (17:19)
[2020-05-20] MEDS: SPIRONOLACTONE 25 MG TAB PO SCH (17:19)
[2020-05-20] MEDS: INSULIN LISPRO 100 UNITS/ML PEN SUBCU SCH ×4 (17:21→20:57)
[2020-05-20] MEDS: DEXAMETHASONE INJ 10 MG/ML VIAL IV SCH (17:27)
[2020-05-20] MEDS: FUROSEMIDE INJ 40 MG/4 ML VIAL IV SCH ×2 (17:37→21:03)
--- NOTE | 2020-05-20 18:01 | PN ---
SUPERVISING PHYSICIAN: Bud Hitchcock MD DATE: 05/20/20 SUBJECTIVE: The patient has been having difficulty maintaining his oxygen saturations through the night. He gets quite agitated and has been on BiPAP most of the night. I spoke with his family and they have decided to make the patient a DNR and to continue active care. OBJECTIVE: VITAL SIGNS: Temperature 97.7, heart rate 89, blood pressure 109/65, respiratory rate 22, oxygen saturation 91% on 80% on BiPAP. RESPIRATORY: Diminished breath sounds throughout. CARDIAC: Regular rate and rhythm. NEUROLOGIC: He is lethargic. He opens his eyes and follows simple commands. LABORATORY: Sodium 131, potassium 4.2, chloride 99, carbon dioxide 25. BUN 20, creatinine 0.45. Calcium 7.5, magnesium 1.7. Total bilirubin 2.7, alkaline phosphatase 191, ammonia 230, LD 325, C-reactive protein 3.8. Blood gas shows pCO2 31, pO2 128. ABG shows pH 7.539, O2 saturation 99.9. That ABG was done on BiPAP. MICROBIOLOGY: Anaerobic blood cultures show no growth after 4 days. One aerobic Blood culture shows Staphylococcus epididymis. The aerobic blood cultures show Staphylococcus hominis. Both are felt to be contaminants. All other labs and films have been reviewed via the EMR. ASSESSMENT: 1. Acute hypoxic respiratory failure requiring noninvasive ventilation. 2. COVID-19 pneumonitis. 3. Hepatic encephalopathy. 4. Type 2 diabetes mellitus. 5. History of hepatitis C with cirrhosis. 6. Anemia. 7. Thrombocytopenia. PLAN: We will continue present supportive care. He has now been made a DNR, but we will continue his active care including his COVID guideline and medications. At this point, he is not able to take much orally. We will most likely to have start lactulose enemas if he is unable to take his oral medications. I have repeated his lab including ammonia in the morning. I have given him some magnesium supplementation. Hopefully, we can wean the patient off of his oxygen, but his prognosis is very poor given his COVID and underlying comorbidities. #[id number] [facility]
[2020-05-20] MEDS: ENOXAPARIN SODIUM 40 MG/0.4 ML SYG SUBCU SCH (20:57)
[2020-05-20] MEDS: INSULIN DETEMIR 100 UNITS/ML PEN SUBCU SCH (21:12)
[2020-05-21] MEDS: IPRATROPIUM/ALBUTEROL 3 ML VIAL NEB SCH ×6 (04:00→20:21)
[2020-05-21] MEDS: PANTOPRAZOLE SODIUM IV 40 MG VIAL IV SCH (05:35)
--- NOTE | 2020-05-21 06:38 | RAD ---
EXAM DESCRIPTION: Chest,1 View CLINICAL HISTORY: covid COMPARISON: 05/19/2020 FINDINGS: Single frontal radiograph view of the chest. Cardiomediastinal silhouette: Stable. Lungs: Low lung volumes with persistent diffuse bilateral interstitial and airspace opacities. Mildly improved aeration. No pneumothorax or large effusion. Bones: Stable. Upper abdomen: Stable. IMPRESSION: 1. Mildly improved aeration with persistent diffuse bilateral interstitial and airspace opacities which could be seen with bilateral pneumonic process, pulmonary edema, and/or ARDS. Electronically signed by: Kendell Kee 05/21/2020 6:37 AM [facility]
[2020-05-21] MEDS: INSULIN LISPRO 100 UNITS/ML PEN SUBCU SCH ×4 (08:30→20:58)
[2020-05-21] MEDS: DEXAMETHASONE INJ 10 MG/ML VIAL IV SCH (08:48)
[2020-05-21] MEDS: FUROSEMIDE INJ 40 MG/4 ML VIAL IV SCH ×2 (08:48→21:57)
[2020-05-21] MEDS ORDERED: ALBUMIN 25 GM in PREMIX BOTTLE 2 BOTTLE IVPB ONE (10:36)
[2020-05-21] MEDS: SPIRONOLACTONE 25 MG TAB PO SCH (10:44)
[2020-05-21] MEDS: BIFIDOBACTERIUM INFANTIS 4 MG CAP PO SCH ×2 (10:45→21:57)
[2020-05-21] MEDS: guaiFENesin ER TAB 600 MG TAB PO SCH (10:45)
[2020-05-21] MEDS: MAGNESIUM OXIDE 400 MG TAB PO SCH ×3 (10:45→21:59)
[2020-05-21] MEDS: LACTULOSE SYRUP 20 GM/30 ML UD PO SCH ×4 (10:45→21:58)
[2020-05-21] MEDS: CEFEPIME 2 GM in SODIUM CHL 0.9% 100ML MINI-BAG 100 ML IVPB SCH ×2 (11:19→23:20)
[2020-05-21] MEDS ORDERED: BUMETANIDE 0.25 MG/ML VIAL IV ONE (14:00)
--- NOTE | 2020-05-21 19:23 | PN ---
SUPERVISING PHYSICIAN: Bud Hitchcock MD DATE: 05/21/20 SUBJECTIVE: Today, the patient is essentially unresponsive. He remains in BiPAP, he only responds to very minimal stimulation, although this morning his ammonia level was much improved. He is able to maintain his 02 saturations with BiPAP. I did talk to his son given his end-stage liver disease and Covid infection, we discussed possibly changing him to hospice inpatient, they are still talking about this as certainly his progress and his expected outcome is very grim. OBJECTIVE: VITAL SIGNS: Temperature 98.3, pulse 103, blood pressure 105/54, respiratory rate 20 to 26, oxygen saturation 93% on BiPAP at 50% FI02. His I&Os are significantly decreased, down to negative balance of 13.5, although is showing third spacing. Weight is pending. GENERAL: Patient looks to be resting comfortably. He is very lethargic and obtunded but he will respond to some pain stimulus. RESPIRATORY: Lung sounds remain diminished throughout. CARDIAC: Regular rate and rhythm. EXTREMITIES: Third spacing with anasarca. NEUROLOGIC: He is lethargic. He opens his eyes only to deep stimulus. LABORATORY: White count 6,700, hemoglobin 10.8, hematocrit 31.0, platelet count down to 42,000, differential does show a left shift. Coagulation studies show D-dimer down to 752. Blood gas analysis yesterday after being on BiPAP did show a slight improvement in P02 at 128. Today, he is on 50% only maintaining 92%. Creatinine 0.53. Blood sugars remain fairly stable between 144 and 182. Calcium 7.6, magnesium 1.8, bilirubin 4.0, liver showing normal AST, ALT. Ammonia at 159. C-reactive protein 7.5, albumin 1.7. Blood cultures are showing 3 different gram positives, one is pending, the other 2 showing Staphylococcus homonymous and Staphylococcus epididymis. RADIOLOGY: chest x-ray this morning per radiology interpretation shows mild improved aeration consistent with diffuse bilateral interstitial and airspace opacities which could be bilateral pneumonic process, pulmonary edema and/or ARDS. ASSESSMENT: 1. COVID-19 pneumonitis. 2. Acute hypoxic respiratory failure secondary to #1 requiring noninvasive ventilation. 3. Chronic hepatic encephalopathy secondary to cirrhosis. 4. Type 2 diabetes mellitus. 5. History of hepatitis C with cirrhosis. 6. 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 7. Thrombocytopenia secondary to cirrhosis. PLAN: I did talk to Dr. Ann in regards to his anasarca and possibly some help with his diuresis. We are going to go ahead and give him 25 grams of albumin followed by 2 mg of Bumex b.i.d. He will continue with diuresis on Lasix, he is not able to take his spironolactone. I have discussed with his family, mainly his son, going to hospice, if he cannot go to hospice we are going to probably have to start giving him some enemas for lactulose as he is not taking oral medications. We plan to repeat his labs in the morning including ammonia. We will continue to work on waning him off BiPAP as possible. Until we can transition him to outpatient management, either hospice care, will continue to monitor and treat as needed. His prognosis is very poor. We will await further discussion on hospice care. #[id number] [facility]
[2020-05-21] MEDS: ENOXAPARIN SODIUM 40 MG/0.4 ML SYG SUBCU SCH (20:59)
[2020-05-21] MEDS: ALBUMIN 25 GM in PREMIX BOTTLE 2 BOTTLE IVPB SCH (21:18)
[2020-05-21] MEDS: BUMETANIDE 0.25 MG/ML VIAL IV SCH (21:56)
[2020-05-21] MEDS: INSULIN DETEMIR 100 UNITS/ML PEN SUBCU SCH (21:58)
[2020-05-22] MEDS: IPRATROPIUM/ALBUTEROL 3 ML VIAL NEB SCH ×4 (00:15→12:45)
[2020-05-22] MEDS ORDERED: INSULIN LISPRO 100 UNITS/ML PEN SUBCU SCH ×2 (00:20→02:17)
[2020-05-22] MEDS: INSULIN LISPRO 100 UNITS/ML PEN SUBCU SCH ×3 (06:07→18:00)
[2020-05-22] MEDS: PANTOPRAZOLE SODIUM IV 40 MG VIAL IV SCH (06:35)
[2020-05-22] MEDS: DEXAMETHASONE INJ 10 MG/ML VIAL IV SCH (09:46)
[2020-05-22] MEDS: ALBUMIN 25 GM in PREMIX BOTTLE 2 BOTTLE IVPB SCH ×2 (09:46→20:44)
[2020-05-22] MEDS: BUMETANIDE 0.25 MG/ML VIAL IV SCH ×2 (09:46→20:43)
[2020-05-22] MEDS: LACTULOSE SYRUP 20 GM/30 ML UD PO SCH ×4 (09:47→21:19)
[2020-05-22] MEDS: SPIRONOLACTONE 25 MG TAB PO SCH (09:47)
[2020-05-22] MEDS: BIFIDOBACTERIUM INFANTIS 4 MG CAP PO SCH ×2 (09:47→21:19)
[2020-05-22] MEDS: guaiFENesin ER TAB 600 MG TAB PO SCH (09:48)
[2020-05-22] MEDS: MAGNESIUM OXIDE 400 MG TAB PO SCH ×3 (09:48→21:20)
[2020-05-22] MEDS: FUROSEMIDE INJ 40 MG/4 ML VIAL IV SCH ×2 (09:48→21:32)
--- NOTE | 2020-05-22 10:26 | RAD ---
: 1965. Technique: Portable AP semisupine chest x-ray at 9:57 AM. Comparison: May 21, 2020 5:47 AM and May 19, 2020. Clinical history: COVID PNA. Heart size: Normal. Lungs: Shallow inspiration extensive bilateral infiltrates unchanged since yesterday but significant improvement since May 19. Consistent with viral pneumonia versus pulmonary edema or other ARDS. Pleura: No pleural effusion. No pneumothorax. Mediastinum and elli: Unremarkable. Skeletal: Unremarkable. Support tubings: None. Upper abdomen: Right upper quadrant cholecystectomy clips. Moderate gastric dilatation. Correlate for gastroparesis or other gastric outlet obstruction. Impression: 1. Persistent bilateral pneumonia versus pulmonary edema/ARDS. Electronically signed by: Daquan Corbin MD 05/22/2020 10:24 AM [facility]
[2020-05-22] MEDS: CEFEPIME 2 GM in SODIUM CHL 0.9% 100ML MINI-BAG 100 ML IVPB SCH ×2 (12:00→22:48)
[2020-05-22] MEDS ORDERED: DEXTROSE 50% 25 GM/50 ML SYG IV PRN (12:56)
[2020-05-22] MEDS ORDERED: GLUCAGON INJ 1 MG VIAL SUBCU PRN (12:56)
[2020-05-22] MEDS: IV SET AND CAP CHANGE INJ INJ SCH (14:26)
--- NOTE | 2020-05-22 16:20 | PN ---
SUPERVISING PHYSICIAN: Bud Hitchcock MD DATE: 05/22/20 SUBJECTIVE: The patient actually is responding well to albumin and Bumex in regard to his edema. He still remains obtunded, in fact, he has difficulty in getting response to painful stimulus. He seems to be doing okay on his BiPAP, his ammonia levels are decreasing, but again, his responsiveness is still not improving. I did have a discussion with his family, his son yesterday and they have not called back with a final decision in regard to his transition to hospice care possibly. OBJECTIVE: VITAL SIGNS: Temperature 97.9, pulse 87, blood pressure 115/66, respirations 22 with oxygen saturation 99% on BiPAP at 50% FI02. His I&Os are showing negative balances continued with good response to diuresis. Weight is actually down about 1.5 kg from yesterday. GENERAL: Patient looks to be resting comfortably. He is very lethargic and obtunded but he will respond to some pain stimulus. RESPIRATORY: Lung sounds remain diminished throughout. CARDIAC: Regular rate and rhythm. EXTREMITIES: He no longer shows any edema compared to yesterday. NEUROLOGIC: He is lethargic. He is still difficult to response to painful stimulus but does maintain his airway on BiPAP. ASSESSMENT: 1. COVID-19 pneumonitis. 2. Acute hypoxic respiratory failure secondary to #1 requiring noninvasive ventilation. 3. Chronic hepatic encephalopathy secondary to cirrhosis. 4. Type 2 diabetes mellitus. 5. History of hepatitis C with cirrhosis. 6. 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 7. Thrombocytopenia secondary to cirrhosis. PLAN: We will continue with current plan of care at this point with BiPAP. In regard to fluid management, I went ahead and put him on n.p.o. because he is not opt for taking any oral intake. He remains on sliding scale every 6 hours. Will keep him on BiPAP. He is on Bumex and albumin for another 24 hours and will probably go back to just Lasix tomorrow, of course, he is not taking any oral medications. Will hopefully be able to contact his son again tomorrow if not later today and see if we can transition him to hospice management. Until then, we will continue to monitor and treat as needed. [facility][id number] [facility]
[2020-05-22] MEDS: ENOXAPARIN SODIUM 40 MG/0.4 ML SYG SUBCU SCH (20:45)
[2020-05-22] MEDS: INSULIN DETEMIR 100 UNITS/ML PEN SUBCU SCH (21:33)
[2020-05-23] MEDS: INSULIN LISPRO 100 UNITS/ML PEN SUBCU SCH ×4 (00:15→18:00)
[2020-05-23] MEDS: PANTOPRAZOLE SODIUM IV 40 MG VIAL IV SCH (06:38)
[2020-05-23] MEDS: ALBUMIN 25 GM in PREMIX BOTTLE 2 BOTTLE IVPB SCH (10:05)
[2020-05-23] MEDS: SPIRONOLACTONE 25 MG TAB PO SCH (10:09)
[2020-05-23] MEDS: LACTULOSE SYRUP 20 GM/30 ML UD PO SCH ×4 (10:09→20:57)
[2020-05-23] MEDS: BUMETANIDE 0.25 MG/ML VIAL IV SCH (10:09)
[2020-05-23] MEDS: BIFIDOBACTERIUM INFANTIS 4 MG CAP PO SCH ×2 (10:09→20:57)
[2020-05-23] MEDS: DEXAMETHASONE INJ 10 MG/ML VIAL IV SCH (10:10)
[2020-05-23] MEDS: FUROSEMIDE INJ 40 MG/4 ML VIAL IV SCH ×2 (10:10→20:57)
[2020-05-23] MEDS: MAGNESIUM OXIDE 400 MG TAB PO SCH ×3 (10:11→20:57)
[2020-05-23] MEDS: guaiFENesin ER TAB 600 MG TAB PO SCH (10:11)
[2020-05-23] MEDS: CEFEPIME 2 GM in SODIUM CHL 0.9% 100ML MINI-BAG 100 ML IVPB SCH ×2 (10:55→22:29)
--- NOTE | 2020-05-23 18:35 | PN ---
SUPERVISING PHYSICIAN: Bud Hitchcock MD DATE: 05/23/20 SUBJECTIVE: The patient remains obtunded. He is still fairly stable on BiPAP. Otherwise, no significant change from previous days. He does desaturate quite quickly if he comes off BIPAP into the low 80s. OBJECTIVE: VITAL SIGNS: Temperature 98.1, pulse 76, blood pressure 112/66, respirations 24 with oxygen saturation 97% on BiPAP at 50% FIO2. GENERAL: Patient looks to be resting comfortably. He is very lethargic and obtunded but he will respond to some pain stimulus. RESPIRATORY: Lung sounds remain diminished throughout. CARDIAC: Regular rate and rhythm. EXTREMITIES: He no longer shows any edema compared to yesterday. NEUROLOGIC: He is lethargic. He is still difficult to response to painful stimulus but does maintain his airway on BiPAP. LABORATORY: Ammonia 115. Blood sugars remain stable between 135 and 174. C- reactive protein 4.1. We will repeat CBC in the morning along with repeat D- dimer and BNP and other appropriate labs. ASSESSMENT: 1. COVID-19 pneumonitis. 2. Acute hypoxic respiratory failure secondary to #1 requiring noninvasive ventilation. 3. Chronic hepatic encephalopathy secondary to cirrhosis. 4. Type 2 diabetes mellitus. 5. History of hepatitis C with cirrhosis. 6. 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 7. Thrombocytopenia secondary to cirrhosis. PLAN: We will continue with current plan of care and try to get him off BiPAP as much as possible. I still have not heard from his family in regards to his possibly going to hospice care. We will still try to make contact with him and see if we can decide on an ultimate plan of care in regards to possibly going to hospice. I stopped his Bumex and albumin for now. We will continue with Lasix and watch his output closely. He may need a little bit of IV fluids as he is a little sugar drier because he has been diuresing fairly well. Otherwise, he stays pretty stable. We will recheck labs in the morning and treat accordingly. Until the patient can transition to either hospice care or back to the custodial, we will continue to monitor and treat as needed. [id number]
[2020-05-23] MEDS: ENOXAPARIN SODIUM 40 MG/0.4 ML SYG SUBCU SCH (20:57)
[2020-05-23] MEDS: INSULIN DETEMIR 100 UNITS/ML PEN SUBCU SCH (21:06)
[2020-05-24] MEDS: INSULIN LISPRO 100 UNITS/ML PEN SUBCU SCH ×4 (00:22→18:28)
[2020-05-24] MEDS: LACTULOSE SYRUP 20 GM/30 ML UD PO SCH ×5 (03:16→20:30)
[2020-05-24] MEDS: BIFIDOBACTERIUM INFANTIS 4 MG CAP PO SCH ×3 (03:16→20:29)
[2020-05-24] MEDS: MAGNESIUM OXIDE 400 MG TAB PO SCH ×4 (03:17→20:31)
[2020-05-24] MEDS: PANTOPRAZOLE SODIUM IV 40 MG VIAL IV SCH (05:56)
[2020-05-24] MEDS: FUROSEMIDE INJ 40 MG/4 ML VIAL IV SCH ×2 (08:35→20:31)
[2020-05-24] MEDS: DEXAMETHASONE INJ 10 MG/ML VIAL IV SCH (08:36)
[2020-05-24] MEDS: guaiFENesin ER TAB 600 MG TAB PO SCH (08:38)
[2020-05-24] MEDS: SPIRONOLACTONE 25 MG TAB PO SCH (08:38)
[2020-05-24] MEDS: CEFEPIME 2 GM in SODIUM CHL 0.9% 100ML MINI-BAG 100 ML IVPB SCH ×2 (10:55→22:37)
--- NOTE | 2020-05-24 15:39 | PN ---
SUPERVISING PHYSICIAN: Bud Hitchcock MD DATE: 05/24/20 SUBJECTIVE: The patient actually is interactive today. He grabbed my hand and actually followed commands. He still remains on BiPAP. He is pretty dependent on BiPAP at this point. He is still not taking any oral medications but otherwise, seems to be holding his own. OBJECTIVE: VITAL SIGNS: Temperature 98.1, pulse 78, blood pressure 128/73, respirations 20 with oxygen saturation 98% on BiPAP at 50% FIO2. GENERAL: Patient looks to be resting comfortably. He is very lethargic and obtunded but he will respond to some pain stimulus. RESPIRATORY: Lung sounds remain diminished throughout. CARDIAC: Regular rate and rhythm. EXTREMITIES: He no longer shows any edema compared to yesterday. NEUROLOGIC: He is lethargic. He is still difficult to respond to painful stimulus but does maintain his airway on BiPAP. LABORATORY: CBC today shows a white count of 5,200, hemoglobin 10, hematocrit 29.4, platelet count 24,000 with a left shift. Chemistries show creatinine 0.55, sodium normal at 145, potassium 3.3. Blood sugars remain stable between 132 and 180. Ammonia down to 71, calcium 8.3. MICROBIOLOGY: Final blood cultures did show multiple species, skin contaminant with staphylococcus hominus and staphylococcus epidermidis, both that were sensitive to all but Erythromycin. RADIOLOGY: No additional radiographic studies today. ASSESSMENT: 1. COVID-19 pneumonitis. 2. Acute hypoxic respiratory failure secondary to #1 requiring noninvasive ventilation. 3. Chronic hepatic encephalopathy secondary to cirrhosis. 4. Type 2 diabetes mellitus. 5. History of hepatitis C with cirrhosis. 6. 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 7. Thrombocytopenia secondary to cirrhosis. PLAN: We will continue with current plan of care at this point and try to get him down off BiPAP. Still waiting to talk to his family to see if they do want to go to hospice care. Hopefully, he will be able to start taking some of his oral medications. He does remain on Lasix but has not been able to take his spironolactone nor has he been taking his lactulose, although his ammonia levels are staying down. We will continue to monitor and treat as needed and again, titrate him down on his FI02 to hopefully get him down to room air if possible. Until we can transition him to further management wither as an outpatient or hospice, will continue to monitor and treat as needed. [facility][id number] [facility]
[2020-05-24] MEDS: ENOXAPARIN SODIUM 40 MG/0.4 ML SYG SUBCU SCH (20:31)
[2020-05-24] MEDS: INSULIN DETEMIR 100 UNITS/ML PEN SUBCU SCH (20:43)
[2020-05-25] MEDS: INSULIN LISPRO 100 UNITS/ML PEN SUBCU SCH ×4 (00:11→18:21)
[2020-05-25] MEDS: PANTOPRAZOLE SODIUM IV 40 MG VIAL IV SCH (05:59)
--- NOTE | 2020-05-25 08:17 | RAD ---
Exam(s): XR CHEST 1 VIEW: 05/25/2020 7:00 AM AC[employer]IC [employer] SPECIALIST Indication: covid pna MAIN Comparison Study Date: May 22, 2020 Technique: AP chest radiograph. Findings: There are hazy bilateral lung opacities diffusely. There is also partial atelectasis of the right upper lobe. These findings are similar as on prior exam. No new abnormality is identified. No pleural effusion or pneumothorax. Heart size is normal. Normal mediastinal contours. There may be some gas in the subcutaneous tissues on the right side of the neck. Also, there is a lot of gas below the diaphragm and it is difficult to identify the stomach and individual bowel loops. IMPRESSION: 1. Unchanged diffuse pulmonary infiltrates consistent with pneumonia or edema. 2. There is a large amount of gas beneath the diaphragm, and is difficult to discern individual bowel loops. While this could represent gaseous distention of the stomach, free air is also a consideration. Recommend two-view abdominal radiographs. 3. There may be some subcutaneous gas developing on the right side of the neck. Attention on subsequent images is recommended. Electronically signed by: Wale Evans MD 05/25/2020 8:15 AM ACAD[employer] GUIDANCE SPECIALIST
[2020-05-25] MEDS: FUROSEMIDE INJ 40 MG/4 ML VIAL IV SCH ×2 (09:14→20:16)
[2020-05-25] MEDS: KCL 20MEQ/D5W 1,000 ML IVS PRN ×2 (09:14→23:04)
[2020-05-25] MEDS: DEXAMETHASONE INJ 10 MG/ML VIAL IV SCH (09:14)
[2020-05-25] MEDS: guaiFENesin ER TAB 600 MG TAB PO SCH (09:18)
[2020-05-25] MEDS: SPIRONOLACTONE 25 MG TAB PO SCH (09:18)
[2020-05-25] MEDS: LACTULOSE SYRUP 20 GM/30 ML UD PO SCH ×4 (09:18→22:54)
[2020-05-25] MEDS: MAGNESIUM OXIDE 400 MG TAB PO SCH ×3 (09:18→22:54)
[2020-05-25] MEDS: BIFIDOBACTERIUM INFANTIS 4 MG CAP PO SCH ×2 (09:18→22:54)
--- NOTE | 2020-05-25 13:42 | RAD ---
EXAM: XR Abdomen, 2 Views CLINICAL HISTORY: better eval possible free air beneath diaphragm TECHNIQUE: Frontal view of the abdomen/pelvis with upright view of the abdomen. COMPARISON: No relevant prior studies available. FINDINGS: Limitations: None. Lower thorax: Interstitial disease noted in the visualized lung recinos with consolidation and air bronchograms present in both bases. Intraperitoneal space: No free air. Gastrointestinal tract: There is marked distention of the stomach. There is air in scattered stool in nondilated colon. There is a minimally dilated small bowel loop in the right upper quadrant. Organs: Cholecystectomy clips present. Bones/joints: Degenerative changes noted in the spine. Soft tissues: No abnormality noted. No concerning calcifications. No concerning radiopaque foreign body noted within the patient. IMPRESSION: 1. No free air noted. 2. Marked gastric distention. This could reflect partial/early gastric outlet obstruction. Bowel gas pattern is otherwise nonspecific, nonobstructive. . 3. Interstitial and bilateral basilar consolidative lung disease most concerning for pneumonia. Electronically signed by: Catrina Delgado MD 05/25/2020 1:40 PM PORT TRAFFIC MANAGER
[2020-05-25] MEDS: CEFEPIME 2 GM in SODIUM CHL 0.9% 100ML MINI-BAG 100 ML IVPB SCH (13:44)
--- NOTE | 2020-05-25 14:29 | PN ---
SUPERVISING PHYSICIAN: Bud Hitchcock MD DATE: 05/25/20 SUBJECTIVE: The patient is more alert today. He is actually following commands. He is still not taking oral intake. I started him on some low IV fluids. He is actually trying to tolerate a nasal cannula at high flow to get off BiPAP. OBJECTIVE: VITAL SIGNS: Temperature 97.6, pulse 73, blood pressure 132/77, respirations 20 with oxygen saturation 100% on high flow nasal cannula . GENERAL: Patient looks to be resting comfortably. He is very lethargic and obtunded but he will respond to some pain stimulus. RESPIRATORY: Lung sounds remain diminished throughout. CARDIAC: Regular rate and rhythm. EXTREMITIES: He no longer shows any edema compared to yesterday. NEUROLOGIC: He is lethargic. He is still difficult to respond to painful stimulus but does maintain his airway on BiPAP. LABORATORY: Chemistries show sodium of 147 without chloride 114, potassium 3.4, calcium 3.2. Creatinine 0.61 with [id number], ammonia down to 88. Blood sugar remains between 111 and 185. MICROBIOLOGY: No new specimens. RADIOLOGY: Chest x-ray this morning per radiology interpretation shows unchanged pulmonary infiltrates consistent with pneumonia. There was a question of some free air in his diaphragm, this was followed up with a 2-view abdominal series which per radiology interpretation showed no free air noted but there was marked gastric distention which could reflect early or partial gastric outlet obstruction. Otherwise, the bowel gas pattern was nonspecific and nonobstructive. Again noted, interstitial bilateral consolidative lung disease most concerning for pneumonia. ASSESSMENT: 1. COVID-19 pneumonitis. 2. Acute hypoxic respiratory failure secondary to #1 requiring noninvasive ventilation. 3. Chronic hepatic encephalopathy secondary to cirrhosis. 4. Type 2 diabetes mellitus. 5. History of hepatitis C with cirrhosis. 6. 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 7. Thrombocytopenia secondary to cirrhosis. PLAN: We will continue to work to get the patient off BiPAP. He will need to get in contact with family to discuss possibly going to hospice. Hopefully, he will start taking some oral intake and we can resume most of his oral medications today. As he is not taking any oral fluids and he is quite dry at this point, I will go ahead and start him on some free water with d5w and some potassium at 80 cc an hour. We will continue to monitor his labs closely as needed and again, hopefully be able to transition him to either hospice or back to the senior living within the next couple of days. Until then, we will continue to monitor and treat as needed. [facility][id number] [facility]
[2020-05-25] MEDS: IV SET AND CAP CHANGE INJ INJ SCH (16:33)
[2020-05-25] MEDS: ENOXAPARIN SODIUM 40 MG/0.4 ML SYG SUBCU SCH (20:16)
[2020-05-25] MEDS: INSULIN DETEMIR 100 UNITS/ML PEN SUBCU SCH (20:38)
[2020-05-26] MEDS: INSULIN LISPRO 100 UNITS/ML PEN SUBCU SCH ×3 (01:24→14:18)
[2020-05-26] MEDS: PANTOPRAZOLE SODIUM IV 40 MG VIAL IV SCH (06:44)
[2020-05-26] MEDS: DEXAMETHASONE INJ 10 MG/ML VIAL IV SCH (08:39)
[2020-05-26] MEDS: FUROSEMIDE INJ 40 MG/4 ML VIAL IV SCH (08:39)
[2020-05-26] MEDS: SPIRONOLACTONE 25 MG TAB PO SCH (09:01)
[2020-05-26] MEDS: LACTULOSE SYRUP 20 GM/30 ML UD PO SCH ×2 (09:01→14:01)
[2020-05-26] MEDS: BIFIDOBACTERIUM INFANTIS 4 MG CAP PO SCH (09:01)
[2020-05-26] MEDS: MAGNESIUM OXIDE 400 MG TAB PO SCH (09:02)
[2020-05-26] MEDS: guaiFENesin ER TAB 600 MG TAB PO SCH (09:02)
[2020-05-26] MEDS: KCL 20MEQ/D5W 1,000 ML IVS PRN (12:26)
[2020-05-26 13:48] VITALS: O2SAT 89
[2020-05-26 14:21] VITALS: BP 106/67; TEMP 97.8
--- NOTE | 2020-06-09 09:16 | DS ---
SUPERVISING PHYSICIAN: Christopher Cordero MD ADMISSION DIAGNOSIS: 1. Hepatic encephalopathy. 2. 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 3. Type 2 diabetes mellitus. 4. History of hepatitis C with cirrhosis. 5. Anemia. 6. Thrombocytopenia. DISCHARGE DIAGNOSIS: 1. COVID-19 pneumonitis. 2. Acute hypoxic respiratory failure secondary to #1, able to titrate down to nasal cannula. 3. Chronic hepatic encephalopathy secondary to cirrhosis. 4. Type 2 diabetes mellitus. 5. History of hepatitis C with cirrhosis. 6. 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 7. Thrombocytopenia secondary to cirrhosis. REASON FOR HOSPITALIZATION: This is a 54-year-old male patient with a known history of hepatitis C and liver failure who has a history of admissions for hepatic encephalopathy as well. He came to the hospital with altered mental status as he has in the past. He was found to have elevated ammonia level. There were initially no beds on the Medical/Surgical Unit, so he was held in the ER. An NG tube was placed and he was given lactulose. He had subsequent improvement in his ammonia level which initially was 238 and then improved to 139. However, given his lack of significant improvement in his level of consciousness, he was referred for admission. At the time of admission, the patient is lethargic, but he does arouse to voice and goes right back to sleep. He is able to swallow. He has already taken his NG tube out, but other than that, he is hemodynamically stable. LABORATORY: White count at discharge was 5,200, hemoglobin 10.0, hematocrit 29.4, platelet count 24,000. Differential showed a left shift. Coagulation studies showed D-dimer down to 752. Blood gas analysis, please seen those reports for final results. Chemistries on discharge showed creatinine 0.48. Electrolytes within normal limits. Ammonia was down to 83. MICROBIOLOGY: He did have two blood cultures that grew out staph hominis and staph epidermis, both considered contaminants. RADIOLOGY: Abdominal x-ray on discharge on 05/25/20 showed no free air noted in the diaphragm, marked gastric distension. There is interstitial bilateral basal consolidation lung disease most concerning for pneumonia. HOSPITAL COURSE: Mr. Manuel was admitted on 05/16/20 initially for hepatic encephalopathy with ongoing COVID pneumonitis. He was treated aggressively with antibiotics. He was given lactulose, however, he did require noninvasive ventilation. He did make slow progression to the point where he was able to get off BiPAP and maintain O2 saturations on nasal cannula. There was some discussion during the hospitalization with family members and the patient was made a DNR as there was acute deterioration at one point where he was going to have to be intubated before he was put on BiPAP, however, he actually did fairly well on BiPAP and again was able to titrate down to nasal cannula. Given his poor condition and his lack of oral intake, he was not on any medications other IV for the majority of his stay. However, on the day before discharge, he was actually awake and able to his medications. Labs were stable. On discussion with the family, the decision was to discharge back to [facility] and to discharge to hospice care. PLAN: Mr. Manuel was discharged on 05/26/20 to go back to [facility] and to be put on hospice care under [facility]. His plan of care is to be per hospice. No other medications prescribed on discharge. CONDITION ON DISCHARGE: Stable, but poor. DISPOSITION: The patient is discharged to hospice care at [facility]. #[id number] MTDD
== END 2020-05-26 15:15 | disposition hospice, home (50) | DRG 441 ==
LOC: ER 01:59 → OBSVTOIN 12:14 → MS 12:14
PROVIDERS: ADMIT Nurse Practitioner; ATTEND Nurse Practitioner Family
PROC: 5A0945A Assistance with Respiratory Ventilation, 24-96 Consecutive Hours, High Flow/Velocity Cannula (ICD-10-PCS; principal; 2020-05-16)
DX: K72.90 Hepatic failure, unspecified without coma (principal); U07.1 COVID-19; J12.89 Other viral pneumonia; J96.01 Acute respiratory failure with hypoxia; R40.2422 Glasgow coma scale score 9-12, at arrival to emergency department; E87.70 Fluid overload, unspecified; K74.60 Unspecified cirrhosis of liver; E11.9 Type 2 diabetes mellitus without complications; B19.20 Unspecified viral hepatitis C without hepatic coma; D63.8 Anemia in other chronic diseases classified elsewhere; D69.59 Other secondary thrombocytopenia; I10 Essential (primary) hypertension; Z88.8 Allergy status to other drugs, medicaments and biological substances; Z87.891 Personal history of nicotine dependence; Z66 Do not resuscitate

== ENCOUNTER 2020-05-26 21:35 | Emergency (ER) | payer MEDICARE ==
--- NOTE | 2020-05-26 22:02 | ED.PDOC ---
History of Present Illness - General Time Seen by Provider: 05/26/20 22:00 Source: EMS, [facility] records, old records - History of Present Illness Initial Comments: PATIENT SENT FROM [facility] BECAUSE HE "DOES NOT HAVE ADVANCED DIRECTIVE". EARLIER IN THE DAY, THE FAMILY WAS CONSULTED BY THE INPATIENT UNIT AND THE DECISION WAS MADE TO MAKE THE PATIENT DNR, ADMIT TO HOSPICE FOR COMFORTIVE CARE AND ADMIT TO THE [facility]. EMS WAS CALLED THIS EVENING TO RETURN THE PATIENT TO THE HOSPITAL HIS CONDITION WAS DETERIORATING AND THE NURSE CARING FOR THE PATIENT FELT THAT HE DID NOT HAVE A DNR. THE FAMILY WAS NOT CONTACTED NOR WAS HOSPICE, BUT INSTEAD EMS WAS CALLED AND THE PATIENT RETURNED TO THE HOSPITAL ER. DISCUSSIONS WERE HAD WITH THE FAMILY (SON AND MOTHER), VIA TELEPHONE WHILE PATIENT IN THE ER. THEY BOTH CONFIRM THERE WISHES AND THEIR BELIEF THAT THE PATIENT WOULD HAVE WANTED TO BE DNR UNDER THIS CIRCUMSTANCE. HE IS CLEARLY TERMINAL AT THIS TIME, PLACING HIM ON A VENTILATOR WOULD RESULT IN LITTLE CHANCE OF SURVIVAL BUT WOULD RESULT IN GREAT SUFFERING. THEY FEEL THE MOST COMPASIONATE CARE FOR HIM IS TO ALLOW NATURAL . Improving Factors: nothing Worsening Factors: nothing Allergies/Adverse Reactions: Allergies Diphenhydramine [From Benadryl] Allergy (Verified 05/12/20 11:16) Home Medications: Ambulatory Orders Furosemide 40 mg PO BID 05/05/20 Insulin Aspart [Novolog Flexpen] 100 unit SC AC 05/05/20 Spironolactone 200 mg PO DAILY 05/05/20 Acetaminophen [Tylenol] 325 mg PO Q4H PRN 05/06/20 Carboxymethylcellulose Sodium [Theratears] 2 drop OP Q2H PRN 05/06/20 Magnesium Oxide 400 mg PO TID 05/06/20 Lactulose Syrup [Chronulac] 30 ml PO QID #120 ud 05/14/20 Guaifenesin [Pharbinex] 400 mg PO DAILY 05/16/20 Past Medical History (General) - Patient Medical History Hx Seizures: No Hx Stroke: No Hx Dementia: No Hx Asthma: No Hx of COPD: No Hx Cardiac Disorders: No Hx Congestive Heart Failure: No Hx Pacemaker: No Hx Hypertension: No Hx Thyroid Disease: No Hx Diabetes: Yes Hx Gastroesophageal Reflux: No Hx Renal Disease: No Hx Cancer: No Hx of HIV: No Hx Hepatitis C: Yes Hx MRSA: No - Vaccination History Hx Tetanus, Diphtheria Vaccination: Yes Hx Influenza Vaccination: No Hx Pneumococcal Vaccination: Yes - Social History Hx Tobacco Use: No Hx Alcohol Use: No Hx Substance Use: No Hx Substance Use Treatment: No Hx Depression: No Hx Physical Abuse: No Hx Emotional Abuse: No - Female History Patient : No Family Medical History - Family History Mother Family History: Unknown Living Status: Unknown Physical Exam - Physical Exam General Appearance: Lethargic Respiratory: respiratory distress, accessory muscle use Cardiovascular/Chest: tachycardia Progress - Progress Progress: DISCUSSIONS WERE HAD WITH THE FAMILY (SON AND MOTHER), VIA TELEPHONE WHILE PATIENT IN THE ER. THEY BOTH CONFIRM THERE WISHES AND THEIR BELIEF THAT THE PATIENT WOULD HAVE WANTED TO BE DNR UNDER THIS CIRCUMSTANCE. HE IS CLEARLY TERMINAL AT THIS TIME, PLACING HIM ON A VENTILATOR WOULD RESULT IN LITTLE CHANCE OF SURVIVAL BUT WOULD RESULT IN GREAT SUFFERING. THEY FEEL THE MOST COMPASIONATE CARE FOR HIM IS TO ALLOW NATURAL . 05/26/20 22:20 Departure - Departure Clinical Impression: Respiratory failure Qualifiers: Chronicity: acute on chronic Respiratory failure complication: hypoxia and hypercapnia Qualified Code(s): J96.21 - Acute and chronic respiratory failure with hypoxia Time of Disposition: 22:01 Disposition: Discharge to Home or Self Care Instructions: Coronavirus Disease 2019 (COVID-19) Referrals: ASHLEY GRIFFITH [Primary Care Provider] - 1-2 Weeks Home Medications: Ambulatory Orders Furosemide 40 mg PO BID 05/05/20 Insulin Aspart [Novolog Flexpen] 100 unit SC AC 05/05/20 Spironolactone 200 mg PO DAILY 05/05/20 Acetaminophen [Tylenol] 325 mg PO Q4H PRN 05/06/20 Carboxymethylcellulose Sodium [Theratears] 2 drop OP Q2H PRN 05/06/20 Magnesium Oxide 400 mg PO TID 05/06/20 Lactulose Syrup [Chronulac] 30 ml PO QID #120 ud 05/14/20 Guaifenesin [Pharbinex] 400 mg PO DAILY 05/16/20 Additional Instructions: PATIENT IS DO NOT RESUSCITATE. FOLLOW ORDERS FROM HOSPICE. DO NOT RETURN PATIENT TO THE HOSPITAL. COMFORTIVE MEASURES ONLY. PATIENT'S FAMILY DESIRED THAT HE BE DNR WHEN HE WAS DISCHARGED FROM THE HOSPITAL. THIS WAS THE UNDERSTANDING WHEN HE WAS ADMITTED TO HOSPICE AND SENT TO THE [facility]. PLEASE MAKE PATIENT COMFORTABLE. COMPASSIONATE CARE ONLY! PATIENT IS TERMINAL. HAVE CONTACTED FAMILY AGAIN THIS EVENING. FAMILY CONFIRMS THAT THIS IS THEIR WISH AND WHAT THE PATIENT WOULD HAVE WANTED IF HE COULD HAVE CHOSEN FOR HIMSELF. THIS IS A VERY REASONABLE DECISION UNDER THE CIRCUMSTANCES FOR THIS PATIENT.
[2020-05-26 22:19] VITALS: TEMP 97.3; O2SAT 78
[2020-05-26 22:44] VITALS: BP 138/81
[2020-05-26] MEDS ORDERED: HYDROmorphone HCL INJ 2 MG/ML VIAL IM ONE (22:58)
== END 2020-05-26 23:05 | disposition home or self-care (01) ==
LOC: ER 21:35
DX: J96.21 Acute and chronic respiratory failure with hypoxia (principal); E11.9 Type 2 diabetes mellitus without complications; Z66 Do not resuscitate; Z86.19 Personal history of other infectious and parasitic diseases; Z79.899 Other long term (current) drug therapy; Z79.4 Long term (current) use of insulin; Z88.8 Allergy status to other drugs, medicaments and biological substances
CPT/HCPCS: J1170; J2060